=== PATIENT | male | born 1960 | race Caucasian/White ===

== ENCOUNTER 2018-04-24 03:18 | Inpatient (IN) | payer OTHER ==
[~2018-04-24] VITALS: Ht 175.3 cm; Wt 64.9 kg
--- NOTE | 2018-04-24 03:30 | NUR ---
PT AMBULATED TO ER WITH C/O CHEST PAIN WITH SOB X 10 DAYS BUT MUCH WORSE TODAY. PT STATES HE HAS HX OF AR. AA0X4. SAO2 100% RA.
[2018-04-24] MEDS ORDERED: ASPIRIN 325 MG TABLET PO ONE (03:45)
[2018-04-24] MEDS ORDERED: DILTIAZEM HCL 25 MG IV IV ONE ×3 (03:45→06:00)
[2018-04-24] MEDS ORDERED: ASPIRIN 325 MG TABLET ONE (03:51)
[2018-04-24] MEDS ORDERED: DILTIAZEM HCL 25 MG IV ONE ×2 (03:53→05:10)
--- NOTE | 2018-04-24 04:28 | NUR ---
PERIPHERAL IV LINE 20 GAUGE PLACED BY ZORA NEWELL IN RIGHT SIDE OF HEAD. CARDIZEM 5 MG GIVEN IV
[2018-04-24 04:29] LABS: BASOPHILS # (AUTO) 0.1 K/uL (0.0-8.0); BASOPHILS % (AUTO) 0.9 % (0.0-2.0); EOSINOPHILS # (AUTO) 0.2 K/uL (0.0-0.7); EOSINOPHILS % (AUTO) 2.6 % (0.0-7.0); HEMATOCRIT 42.1 % (36.7-47.1); HEMOGLOBIN 14.3 g/dL (12.5-16.3); LYMPHOCYTES # (AUTO) 1.8 K/uL (20.0-40.0); LYMPHOCYTES % (AUTO) 29.1 % (20.5-51.5); MEAN CORPUSCULAR HEMOGLOBIN 28.3 uug (23.8-33.4); MEAN CORPUSCULAR HGB CONC 34 g/dL (32.5-36.3); MEAN CORPUSCULAR VOLUME 83.6 fL (73.0-96.2); MONOCYTES # (AUTO) 0.9 K/uL (2.0-10.0); MONOCYTES % (AUTO) 15.2 % (0.0-11.0); NEUTROPHILS # (AUTO) 3.2 K/uL (1.8-8.9); NEUTROPHILS % (AUTO) 52.2 % (38.5-71.5); PLATELET COUNT (AUTO) 180 K/uL (152-348); RED BLOOD CELL COUNT(AUTO) 5.04 MIL/uL (4.06-5.63); WHITE BLOOD COUNT (AUTO) 6.2 K/uL (3.6-10.2)
[2018-04-24] MEDS ORDERED: VANCOMYCIN IV 200 ML ONE (04:40)
[2018-04-24] MEDS ORDERED: VANCOMYCIN IV 1,000 MG in IV DEXTROSE 5% 250 ML IV ONE (04:45)
[2018-04-24 04:46] LABS: CREATININE 0.9 mg/dL (0.6-1.3); POTASSIUM 3.8 mmol/L (3.5-5.1)
[2018-04-24 04:59] LABS: BILIRUBIN,DIRECT 0.1 mg/dL (0.0-0.2); BILIRUBIN,TOTAL 0.4 mg/dL (0.2-1.0); TOTAL PROTEIN, SERUM 6.4 g/dL (6.4-8.2)
--- NOTE | 2018-04-24 05:30 | NUR ---
2ND DOSE OF CARDIZEM 5 MG IV GIVEN
--- NOTE | 2018-04-24 05:43 | NUR ---
PAGED [facility] FOR PANEL CALL. AWAITING CALL BACK FROM CARRIE MARSHALL
--- NOTE | 2018-04-24 05:48 | NUR ---
DR. FELIX TALKING TO CARRIE MARSHALL NP ([facility])
--- NOTE | 2018-04-24 05:55 | NUR ---
Pt. admitted to TELE TD ([facility]) , under care of CARRIE MUKHERJEE PLASTIC PRESS OPERATOR (EPIC) Belongs List completed Report given to Anila LOTT
[2018-04-24] MEDS ORDERED: NITROGLYCERIN OINT 1 GM PACKET TP PRN (06:00)
[2018-04-24] MEDS ORDERED: MORPHINE SULFATE 2 MG/1 ML DISP.SYRIN IV PRN ×2 (06:00)
[2018-04-24] MEDS ORDERED: ACETAMINOPHEN 325 MG TABLET PO PRN (06:00)
[2018-04-24] MEDS ORDERED: Z GUARD REMEDY PASTE 57 GM TUBE TOP PRN (06:00)
[2018-04-24] MEDS ORDERED: ONDANSETRON 4 MG/2 ML VIAL IV PRN ×2 (06:00)
[2018-04-24] MEDS ORDERED: FUROSEMIDE 20 MG/2 ML VIAL IV ONE (06:00)
[2018-04-24] MEDS ORDERED: NITROGLYCERIN 0.4 MG/TAB BOTTLE SL PRN (06:00)
[2018-04-24] MEDS ORDERED: MAGNESIUM HYDROXIDE 30 ML LIQUID UDC PO PRN (06:00)
[2018-04-24 06:06] LABS: EOSINOPHILS % (MANUAL) 4 % (0-8); LYMPHOCYTES % (MANUAL) 23 % (20-40); MONOCYTES % (MANUAL) 11 % (2-10); NEUTROPHILS % (MANUAL) 62 % (42-75)
--- NOTE | 2018-04-24 06:24 | NUR ---
GAVE REPORT TO ANNIA LOTT
[2018-04-24 07:00] VITALS: BP 122/94
[2018-04-24] MEDS ORDERED: MORPHINE SULFATE 4 MG/1 ML DISP.SYRIN IV PRN (08:00)
--- NOTE | 2018-04-24 08:00 | NUR ---
PATIENT RESTING IN BED IN NO APPARENT DISTRESS. FREQUENT VISUAL CHECKS DONE. SIDE RAILS UP. SEEN BY
[2018-04-24] MEDS: PANTOPRAZOLE SODIUM 40 MG VIAL IV SCH (08:58)
[2018-04-24] MEDS ORDERED: ASPIRIN 325 MG TABLET PO SCH (09:00)
[2018-04-24] MEDS ORDERED: ENOXAPARIN SODIUM 40 MG/0.4 ML DISP.SYRIN SQ SCH (09:00)
--- NOTE | 2018-04-24 10:00 | NUR ---
BLADDER SCAN 951 CC VOIDED 400ML WITH PVR OF 500+
[2018-04-24] MEDS: MORPHINE SULFATE 4 MG/1 ML DISP.SYRIN IV PRN ×2 (10:10→20:55)
[2018-04-24] MEDS ORDERED: TAMSULOSIN HCL 0.4 MG CAP.SR.24H PO ONE (10:30)
--- NOTE | 2018-04-24 11:42 | NUR ---
MIDLINE INSERTED TO RIGHT BRACHIAL WITH NO COMPLICATIONS AT 1130AM
[2018-04-24 12:17] VITALS: BP 116/73
--- NOTE | 2018-04-24 12:48 | NUR ---
WOUND CARE CONSULT: LIMITED ASSESSMENT TODAY DUE TO PT REFUSAL TO REMOVE HIS JEANS. PT NOTED TO HAVE DEBRIS ON TOES WITH SOME CALLUSES AND RED SCARRED AREA BETWEEN RT 1ST AND 2ND TOE. NO DRAINAGE NOTED, NO TENDERNESS NOTED. DEFER TO . WILL SEE PRN. PT AMBULATORY AND CONTINENT PER NURSING STAFF. CURRENT AMBER SCORE IS 21. Addendum: 04/24/18 at 1249 by KIMMIE FERNANDO RN Amended: Links added.
--- NOTE | 2018-04-24 15:00 | NUR ---
BLADDER SCAN 657ML VOIDED 400ML WITH PVR 237ML
[2018-04-24 15:34] VITALS: BP 131/90
[2018-04-24 17:53] LABS: *AMPHETAMINE, URINE POSITIVE (NEGATIVE); *BARBITURATE, URINE NEGATIVE (NEGATIVE); *CANNABINOID, URINE POSITIVE (NEGATIVE); *COCCAINE, URINE NEGATIVE (NEGATIVE); *OPIATE, URINE NEGATIVE (NEGATIVE); *PHENCYCLIDINE SCREEN,URINE NEGATIVE (NEGATIVE)
[2018-04-24] MEDS ORDERED: RIVAROXABAN 10 MG TABLET PO SCH (18:00)
[2018-04-24] MEDS: PROPRANOLOL HCL 10 MG TABLET PO SCH (18:02)
[2018-04-24 18:13] LABS: *BILIRUBIN,URIN NEGATIVE (NEGATIVE); *BLOOD, URINE NEGATIVE (NEGATIVE); *CLARITY,URINE CLEAR (CLEAR); *COLOR,URINE YELLOW (YELLOW); *KETONES,URINE NEGATIVE (NEGATIVE); *PROTEIN,URINE NEGATIVE (NEGATIVE); *UROBILINOGEN,URINE 0.2 E.U./dl (NORMAL); LEUKOCYTE ESTERASE ,URINE NEGATIVE (NEGATIVE); NITRITE, URINE NEGATIVE (NEGATIVE); UGLUCOSE NEGATIVE (NEGATIVE)
[2018-04-24 18:16] LABS: MUCUS,URINE FEW /LPF (0-FEW)
--- NOTE | 2018-04-24 18:27 | NUR ---
DR JONES NOTIFIED OF URINARY RETENTION. PATIENT SEEN AND EVALUATED BY DR. AYON. DR AYON SUGGESTED UROLOGY CONSULT
--- NOTE | 2018-04-24 19:30 | NUR ---
RECEIVED PATIENT AWAKE ON BED. ON AFIB RHYTHM WITH HR OF 106. NO SIGN OF RESPIRATORY DISTRESS. MIDLINE, PATENT AND INTACT. SAFETY MEASURES INITIATED. KEPT CALL LIGHT WITHIN REACH.
[2018-04-24 19:33] VITALS: BP 115/75
--- NOTE | 2018-04-24 20:15 | NUR ---
Received patient awake & alert no SOB deneis chest pain. Anxiousness noted patient stated he needs to smoke outside. Instructed & explained he's not allowed to smoke due to current medical condition A-fib with RVR. Tele shows Atrial Afib HR 98 bpm. Patient upset & agitated, stated he will leave AMA. Nursing expedition supervisor & Dr. Cantrell notified.
--- NOTE | 2018-04-24 20:41 | NUR ---
Patient changed his mind to leave AMA. ordered Nicotine patch 21 mg daily.
[2018-04-24] MEDS: NICOTINE 21 MG/24HR PATCH TD SCH (20:54)
[2018-04-24] MEDS: TAMSULOSIN HCL 0.4 MG CAP.SR.24H PO SCH (20:57)
[2018-04-24] MEDS: DOCUSATE SODIUM 100 MG CAPSULE PO SCH (20:57)
[2018-04-24] MEDS ORDERED: TAMSULOSIN HCL 0.4 MG CAP.SR.24H PO SCH (21:00)
--- NOTE | 2018-04-24 21:12 | NUR ---
Nicotine 21 mg patch applied. Patient c/o right foot pain 6/10 pain level. Morphine 1 mg adm IVP. Tele A-fib HR 100 bpm.
[2018-04-24 23:30] VITALS: BP 106/73
[2018-04-24] MEDS ORDERED: IPRATROPIUM BROMIDE 0.5 MG/2.5 ML NEBU NEB PRN (23:30)
[2018-04-24] MEDS ORDERED: LORAZEPAM 2 MG/1 ML VIAL IV PRN (23:30)
[2018-04-24] MEDS ORDERED: ALBUTEROL SULFATE 2.5 MG/3 ML NEBU NEB PRN (23:30)
--- NOTE | 2018-04-24 23:32 | NUR ---
Remains awake slightly SOB & anxious at this time. Paged Dr. Cantrell. Orders received.
--- NOTE | 2018-04-25 00:14 | NUR ---
New ordered meds still unverified.
--- NOTE | 2018-04-25 01:30 | NUR ---
Ativan 0.5 mg IVP adm., HHN treatment initiated by RT.
--- NOTE | 2018-04-25 02:15 | NUR ---
Good effect noted post breathing treatment, patient asleep at this time. No sign of distress noted. Tele remains A-fib controlled.
[2018-04-25 03:49] VITALS: BP 108/77
[2018-04-25 06:21] LABS: BASOPHILS # (AUTO) 0.1 K/uL (0.0-8.0); BASOPHILS % (AUTO) 1.1 % (0.0-2.0); EOSINOPHILS # (AUTO) 0.2 K/uL (0.0-0.7); EOSINOPHILS % (AUTO) 4.1 % (0.0-7.0); HEMATOCRIT 44.5 % (36.7-47.1); HEMOGLOBIN 15.2 g/dL (12.5-16.3); LYMPHOCYTES % (AUTO) 21.1 % (20.5-51.5); MEAN CORPUSCULAR HEMOGLOBIN 28.4 uug (23.8-33.4); MEAN CORPUSCULAR HGB CONC 34 g/dL (32.5-36.3); MEAN CORPUSCULAR VOLUME 83.3 fL (73.0-96.2); MONOCYTES # (AUTO) 0.6 K/uL (2.0-10.0); MONOCYTES % (AUTO) 12.7 % (0.0-11.0); PLATELET COUNT (AUTO) 188 K/uL (152-348); RED BLOOD CELL COUNT(AUTO) 5.35 MIL/uL (4.06-5.63)
[2018-04-25 06:39] LABS: CARBON DIOXIDE 26 mmol/L (21-32); CHLORIDE 106 mmol/L (98-107); CHOLESTEROL 52 mg/dL (<200); CREATININE 0.8 mg/dL (0.6-1.3); GLUCOSE 96 mg/dL (74-106); HDL CHOLESTEROL 19 mg/dL (40-60); MAGNESIUM 1.7 mg/dL (1.8-2.4); PHOSPHOROUS 3.9 mg/dL (2.5-4.9); TRIGLYCERIDES 56 MG/DL (30-150); UREA NITROGEN, BLOOD 16 mg/dL (7-18)
[2018-04-25 06:49] LABS: THYROID STIMULATING HORMONE < 0.007 mIU/mL (0.358-3.740)
--- NOTE | 2018-04-25 06:57 | NUR ---
Patient asleep and resting comfortably. on tele afib rhythm with HR of 96. no SOB, denies chest pain. vital signs WNL
--- NOTE | 2018-04-25 08:00 | NUR ---
PATIENT APPEARS TO BE IN NO DISTRESS TIME. PATIENT REMAINS IN CONTROLLED A-FIB RHYTHM.
[2018-04-25] MEDS: FUROSEMIDE 40 MG/4 ML VIAL IV SCH (08:14)
[2018-04-25] MEDS: MULTIVITAMINS,THERAPEUTIC TABLET PO SCH (08:16)
[2018-04-25] MEDS: PANTOPRAZOLE SODIUM 40 MG VIAL IV SCH (08:16)
[2018-04-25] MEDS: NICOTINE 21 MG/24HR PATCH TD SCH (08:17)
[2018-04-25] MEDS: PROPRANOLOL HCL 10 MG TABLET PO SCH ×2 (08:17→13:53)
[2018-04-25 11:33] VITALS: BP 120/75
--- NOTE | 2018-04-25 12:22 | NUR ---
PATIENT COMPLAINED OF "I DONT FEEL GOOD". NO SIGNS OF SOB. WARM AND DRY SKIN. NO ACUTE DISTRESS. VS 109/65 HR 105 O2 SAT 98% ON O2 AT 2LPM. DENIES PAIN. WILL CLOSELY MONITOR.
[2018-04-25] MEDS ORDERED: MAGNESIUM OXIDE 400 MG TABLET PO ONE (12:45)
[2018-04-25 15:37] VITALS: BP 103/68
--- NOTE | 2018-04-25 16:50 | NUR ---
MALE VISITER CAME WITH A BAG OF FOOD.
[2018-04-25] MEDS ORDERED: PROPRANOLOL HCL 10 MG TABLET PO SCH (17:00)
[2018-04-25] MEDS: RIVAROXABAN 10 MG TABLET PO SCH (17:25)
--- NOTE | 2018-04-25 18:04 | NUR ---
SEEN BY DR AYON ADJUSTED MEDICATIONS. PT IN STABLE CONDITION. REMAINS AFIB ON MONITOR
[2018-04-25] MEDS: HYDROCODONE/APAP 5-325MG TABLET PO PRN (18:24)
[2018-04-25 19:33] VITALS: BP 134/65
[2018-04-25] MEDS: TAMSULOSIN HCL 0.4 MG CAP.SR.24H PO SCH (21:29)
[2018-04-25] MEDS: DOCUSATE SODIUM 100 MG CAPSULE PO SCH (21:29)
[2018-04-25] MEDS: PROPRANOLOL HCL 20 MG TABLET PO SCH (21:29)
[2018-04-25 23:45] VITALS: BP 127/55
[2018-04-26] MEDS: MORPHINE SULFATE 4 MG/1 ML DISP.SYRIN IV PRN (02:01)
[2018-04-26 03:35] VITALS: BP 102/66
[2018-04-26] MEDS: PROPRANOLOL HCL 20 MG TABLET PO SCH ×2 (05:50→15:10)
[2018-04-26] MEDS ORDERED: PANTOPRAZOLE SODIUM 40 MG TABLET.DR PO SCH (07:00)
--- NOTE | 2018-04-26 07:25 | NUR ---
PATIENT REMAINED ASLEEP AND RESTING COMFORTABLY. ON TELE AFIB WITH HR OF 102. NO SOB, DENIES CHEST PAIN.
--- NOTE | 2018-04-26 08:10 | NUR ---
AWAKE ALERT AN VERBA;;Y RESPONSIVE NO SS OF PAIN OE DISTRESS. REMAINS AFIB ON MONITOR
[2018-04-26 08:29] VITALS: BP 109/71
[2018-04-26] MEDS: NICOTINE 21 MG/24HR PATCH TD SCH (08:31)
[2018-04-26] MEDS: MULTIVITAMINS,THERAPEUTIC TABLET PO SCH (08:31)
[2018-04-26] MEDS: FUROSEMIDE 40 MG/4 ML VIAL IV SCH (08:31)
--- NOTE | 2018-04-26 11:00 | NUR ---
EEN BY PODIATRISR RECOMMEND MRI RIGHT TOR
[2018-04-26 11:42] VITALS: BP 109/85
[2018-04-26 11:48] LABS: CREATININE 0.9 mg/dL (0.6-1.3); MAGNESIUM 1.6 mg/dL (1.8-2.4); POTASSIUM 3.9 mmol/L (3.5-5.1)
--- NOTE | 2018-04-26 12:00 | NUR ---
CONTINUE WITH PAIN MAGT
--- NOTE | 2018-04-26 13:30 | NUR ---
TO CT SCAN FOR RT FOOT SCAN R/O OSTEOMYELITIS
[2018-04-26] MEDS: HYDROCODONE/APAP 5-325MG TABLET PO PRN (15:09)
--- NOTE | 2018-04-26 15:14 | NUR ---
ADMITTED FROM HOME A 58 YO FEMALE WITH ADM DX OF ACCELERATED HYPERTENSION AWAKE ALERT AND ORIENTED X3.ROUTINE ADM ASSESSMENT INITIATED HOSPITALIST DIANA AWARE OF ADM OSMIN ORDERS Addendum: 04/26/18 at 1520 by MIROSLAVA FARLEY RN ERROR
[2018-04-26] MEDS: MAGNESIUM SULFATE/D5W 100 ML IV SCH ×2 (16:11→17:40)
[2018-04-26] MEDS: RIVAROXABAN 10 MG TABLET PO SCH (17:43)
--- NOTE | 2018-04-26 18:16 | NUR ---
CONTINUE WITH BLOOD PRESSURE AND SUGAR MONITORING. PATIENT REMAINS ASSYMPTOMATIC, COHERENT AND APPROPRIATE. WILL CALL FAMILY TO BRING HOME MEDS
[2018-04-26 19:00] VITALS: BP 123/69
--- NOTE | 2018-04-26 19:00 | NUR ---
Received patient awake. Not in distress. Denies any pain/discomforts at this time. Dressing on CARLOS Mid Line dry and intact. Safety measures and fall precaution maintained. Continue care as planned.
--- NOTE | 2018-04-26 20:06 | NUR ---
Patient all of a sudden starts packing and when asked he said he's going AMA and will sign the paper. Charge Nurse and MD made aware.
--- NOTE | 2018-04-26 20:20 | NUR ---
Mid line dc'd. No bleeding noted, secured with tape.
[2018-05-04] MEDS ORDERED: METH5TAB34 PO (12:06)
[2018-05-04] MEDS ORDERED: ASPI81TA31 PO (12:06)
[2018-05-04] MEDS ORDERED: DILT60TA35 PO (12:06)
[2018-05-04] MEDS ORDERED: PROP10TA68 PO (12:06)
[2018-05-04] MEDS ORDERED: RIVA10TA PO (12:06)
[2018-05-04] MEDS ORDERED: FURO40TA5 PO (12:06)
== END 2018-04-26 20:06 | disposition left against medical advice (07) | DRG 201 ==
LOC: ER 03:25 → TELE-TD 05:40 → TELE 04-26 19:38
PROVIDERS: ADMIT Registered Nurse; ATTEND Internal Medicine
PROC: 05H533Z Insertion of Infusion Device into Right Subclavian Vein, Percutaneous Approach (ICD-10-PCS; principal; 2018-04-24)
PROC: B546ZZA Ultrasonography of Right Subclavian Vein, Guidance (ICD-10-PCS; principal; 2018-04-24)
DX: I48.91 Unspecified atrial fibrillation (principal); I50.23 Acute on chronic systolic (congestive) heart failure; I42.9 Cardiomyopathy, unspecified; L03.115 Cellulitis of right lower limb; E83.42 Hypomagnesemia; E05.90 Thyrotoxicosis, unspecified without thyrotoxic crisis or storm; N40.0 Benign prostatic hyperplasia without lower urinary tract symptoms; F17.210 Nicotine dependence, cigarettes, uncomplicated; I11.0 Hypertensive heart disease with heart failure; F15.90 Other stimulant use, unspecified, uncomplicated; Z71.6 Tobacco abuse counseling; Z59.0 Homelessness; Z71.51 Drug abuse counseling and surveillance of drug abuser; B19.20 Unspecified viral hepatitis C without hepatic coma
CPT/HCPCS: 36415; 36569; 70030-TC; 71045; 73630; 73700; 80307; 83735; 84100; 84443; 85025; 85730; 93005; 93307; 94664; 97116; 97530; A4663; C9113; J1650; J1940; J2060; J2270; J2405; J3370; J3475; J3490; J3590; J7050

== ENCOUNTER 2018-05-02 00:23 | Inpatient (IN) | payer OTHER ==
[~2018-05-02] VITALS: Ht 172.7 cm; Wt 64.7 kg
[2018-05-02] MEDS ORDERED: DILTIAZEM HCL IV 20 MG in IV DEXTROSE 5% 100 ML IV ONE (00:30)
[2018-05-02] MEDS ORDERED: LORAZEPAM 2 MG/1 ML VIAL IV ONE (00:30)
[2018-05-02] MEDS ORDERED: DILTIAZEM HCL 25 MG IV ONE (00:37)
[2018-05-02] MEDS ORDERED: LORAZEPAM 2 MG/1 ML VIAL ONE (00:39)
[2018-05-02] MEDS ORDERED: DILTIAZEM HCL 25 MG IV IV ONE (01:00)
[2018-05-02 01:07] LABS: BASOPHILS % (AUTO) 0.6 % (0.0-2.0); EOSINOPHILS # (AUTO) 0.2 K/uL (0.0-0.7); EOSINOPHILS % (AUTO) 2.2 % (0.0-7.0); HEMATOCRIT 41.9 % (36.7-47.1); HEMOGLOBIN 14.1 g/dL (12.5-16.3); LYMPHOCYTES # (AUTO) 1.7 K/uL (20.0-40.0); LYMPHOCYTES % (AUTO) 22.7 % (20.5-51.5); MEAN CORPUSCULAR HEMOGLOBIN 28.2 uug (23.8-33.4); MEAN CORPUSCULAR HGB CONC 34 g/dL (32.5-36.3); MEAN CORPUSCULAR VOLUME 83.7 fL (73.0-96.2); MONOCYTES # (AUTO) 0.8 K/uL (2.0-10.0); NEUTROPHILS # (AUTO) 4.9 K/uL (1.8-8.9); NEUTROPHILS % (AUTO) 64.5 % (38.5-71.5); PLATELET COUNT (AUTO) 188 K/uL (152-348); WHITE BLOOD COUNT (AUTO) 7.7 K/uL (3.6-10.2)
[2018-05-02 01:14] LABS: CREATININE 0.9 mg/dL (0.6-1.3); POTASSIUM 3.7 mmol/L (3.5-5.1)
[2018-05-02] MEDS ORDERED: DILTIAZEM HCL 60 MG TABLET PO ONE (01:30)
[2018-05-02] MEDS ORDERED: DILTIAZEM HCL 60 MG TABLET ONE (01:35)
[2018-05-02] MEDS ORDERED: ENOXAPARIN SODIUM 60 MG/0.6 ML DISP.SYRIN SQ ONE (01:58)
[2018-05-02] MEDS ORDERED: ENOXAPARIN SODIUM 60 MG/0.6 ML DISP.SYRIN SQ SCH (02:00)
[2018-05-02] MEDS ORDERED: DIGOXIN 500 MCG/2 ML AMP IV ONE (02:15)
[2018-05-02] MEDS ORDERED: METOPROLOL TARTRATE 5 MG/5 ML VIAL IVP PRN (02:15)
[2018-05-02] MEDS ORDERED: Z GUARD REMEDY PASTE 57 GM TUBE TOP PRN (02:15)
[2018-05-02] MEDS ORDERED: ACETAMINOPHEN 325 MG TABLET PO PRN (02:15)
[2018-05-02] MEDS ORDERED: ONDANSETRON 4 MG/2 ML VIAL IV PRN (02:15)
[2018-05-02] MEDS ORDERED: MORPHINE SULFATE 2 MG/1 ML DISP.SYRIN IV PRN (02:15)
[2018-05-02] MEDS ORDERED: LORAZEPAM 2 MG/1 ML VIAL IV PRN (02:15)
[2018-05-02] MEDS: DILTIAZEM HCL 60 MG TABLET PO SCH ×4 (02:15→22:00)
[2018-05-02] MEDS ORDERED: MAGNESIUM HYDROXIDE 30 ML LIQUID UDC PO PRN (02:15)
[2018-05-02 03:00] VITALS: BP 93/62
[2018-05-02] MEDS: HYDROCODONE/APAP 5-325MG TABLET PO PRN ×2 (04:06→23:17)
[2018-05-02] MEDS ORDERED: METOPROLOL TARTRATE 25 MG TABLET PO PRN (05:00)
[2018-05-02] MEDS ORDERED: ONDANSETRON ODT 4 MG TAB.RAPDIS SL PRN (05:00)
[2018-05-02] MEDS ORDERED: MORPHINE SULFATE 2 MG/1 ML DISP.SYRIN ONE (05:35)
[2018-05-02] MEDS ORDERED: MORPHINE SULFATE 2 MG/1 ML DISP.SYRIN IM PRN (06:15)
[2018-05-02] MEDS ORDERED: MORPHINE SULFATE 4 MG/1 ML DISP.SYRIN IM PRN (07:04)
[2018-05-02] MEDS ORDERED: ASPIRIN 81 MG TAB.CHEW PO SCH (09:00)
[2018-05-02 11:47] VITALS: BP 106/80
[2018-05-02] MEDS: LORAZEPAM 2 MG/1 ML VIAL IM PRN ×2 (12:51→21:05)
[2018-05-02 16:01] VITALS: BP 112/61
[2018-05-02] MEDS ORDERED: FUROSEMIDE 40 MG/4 ML VIAL IV SCH (16:30)
[2018-05-02] MEDS ORDERED: PROPRANOLOL HCL 10 MG TABLET PO SCH (17:00)
[2018-05-02] MEDS: METOPROLOL TARTRATE 25 MG TABLET PO SCH ×2 (17:38→20:58)
[2018-05-02] MEDS: FUROSEMIDE 40 MG TABLET PO SCH (17:39)
[2018-05-02] MEDS: RIVAROXABAN 10 MG TABLET PO SCH (18:58)
[2018-05-02 19:00] VITALS: BP 109/68
[2018-05-02] MEDS: ZOLPIDEM 5 MG TABLET PO PRN (23:42)
[2018-05-03] VITALS: BP 107/54
[2018-05-03 04:00] VITALS: BP 106/70
[2018-05-03] MEDS: DILTIAZEM HCL 60 MG TABLET PO SCH ×3 (06:00→22:00)
[2018-05-03 06:18] LABS: BASOPHILS # (AUTO) 0.1 K/uL (0.0-8.0); BASOPHILS % (AUTO) 0.7 % (0.0-2.0); EOSINOPHILS # (AUTO) 0.1 K/uL (0.0-0.7); EOSINOPHILS % (AUTO) 0.7 % (0.0-7.0); HEMATOCRIT 43.6 % (36.7-47.1); HEMOGLOBIN 14.5 g/dL (12.5-16.3); LYMPHOCYTES # (AUTO) 1.9 K/uL (20.0-40.0); LYMPHOCYTES % (AUTO) 19.4 % (20.5-51.5); MEAN CORPUSCULAR HEMOGLOBIN 27.9 uug (23.8-33.4); MEAN CORPUSCULAR HGB CONC 33 g/dL (32.5-36.3); MONOCYTES % (AUTO) 9.9 % (0.0-11.0); NEUTROPHILS # (AUTO) 6.8 K/uL (1.8-8.9); NEUTROPHILS % (AUTO) 69.3 % (38.5-71.5); PLATELET COUNT (AUTO) 192 K/uL (152-348); RED BLOOD CELL COUNT(AUTO) 5.19 MIL/uL (4.06-5.63); WHITE BLOOD COUNT (AUTO) 9.8 K/uL (3.6-10.2)
[2018-05-03 06:32] LABS: CARBON DIOXIDE 26 mmol/L (21-32); CHLORIDE 104 mmol/L (98-107); GLUCOSE 93 mg/dL (74-106); HDL CHOLESTEROL 18 mg/dL (40-60); MAGNESIUM 1.7 mg/dL (1.8-2.4); PHOSPHOROUS 3.9 mg/dL (2.5-4.9); POTASSIUM 4.6 mmol/L (3.5-5.1); TRIGLYCERIDES 47 MG/DL (30-150); UREA NITROGEN, BLOOD 17 mg/dL (7-18)
[2018-05-03 06:39] LABS: THYROID STIMULATING HORMONE < 0.007 mIU/mL (0.358-3.740)
[2018-05-03 06:41] LABS: CHOLESTEROL < 50 mg/dL (<200)
[2018-05-03 07:00] VITALS: BP 100/69
[2018-05-03] MEDS: ASPIRIN 81 MG TAB.CHEW PO SCH (08:36)
[2018-05-03] MEDS: FUROSEMIDE 40 MG TABLET PO SCH ×2 (08:36→17:31)
[2018-05-03] MEDS: METOPROLOL TARTRATE 25 MG TABLET PO SCH (08:38)
[2018-05-03] MEDS ORDERED: LORAZEPAM 2 MG/1 ML VIAL ONE (10:30)
[2018-05-03] MEDS: METHIMAZOLE 5 MG TABLET PO SCH (11:06)
[2018-05-03] MEDS: PROPRANOLOL HCL 10 MG TABLET PO SCH ×3 (11:06→22:00)
[2018-05-03 12:00] VITALS: BP 98/48
[2018-05-03] MEDS: HYDROCODONE/APAP 5-325MG TABLET PO PRN (15:19)
[2018-05-03 16:14] VITALS: BP 104/80
[2018-05-03] MEDS: RIVAROXABAN 10 MG TABLET PO SCH (17:32)
[2018-05-03] MEDS ORDERED: MAGNESIUM SULFATE/D5W 100 ML IV SCH (18:00)
[2018-05-03] MEDS ORDERED: MAGNESIUM OXIDE 400 MG TABLET PO ONE ×4 (19:00→23:00)
[2018-05-03] MEDS: LORAZEPAM 2 MG/1 ML VIAL IM PRN (21:46)
[2018-05-04] VITALS: BP 106/75
[2018-05-04] MEDS: ZOLPIDEM 5 MG TABLET PO PRN (00:30)
[2018-05-04 04:00] VITALS: BP 98/72
[2018-05-04] MEDS: HYDROCODONE/APAP 5-325MG TABLET PO PRN (04:36)
[2018-05-04] MEDS: DILTIAZEM HCL 60 MG TABLET PO SCH (06:00)
[2018-05-04] MEDS: PROPRANOLOL HCL 10 MG TABLET PO SCH (06:00)
[2018-05-04 06:54] LABS: CREATININE 0.9 mg/dL (0.6-1.3); MAGNESIUM 1.9 mg/dL (1.8-2.4); POTASSIUM 3.8 mmol/L (3.5-5.1)
[2018-05-04] MEDS: FUROSEMIDE 40 MG TABLET PO SCH (08:32)
[2018-05-04] MEDS: ASPIRIN 81 MG TAB.CHEW PO SCH (08:32)
[2018-05-04] MEDS: METHIMAZOLE 5 MG TABLET PO SCH (08:32)
[2018-05-04] MEDS ORDERED: METH5TAB34 PO (12:06)
[2018-05-04] MEDS ORDERED: ASPI81TA31 PO (12:06)
[2018-05-04] MEDS ORDERED: PROP10TA68 PO (12:06)
[2018-05-04] MEDS ORDERED: RIVA10TA PO (12:06)
[2018-05-04] MEDS ORDERED: FURO40TA5 PO (12:06)
[2018-05-04] MEDS ORDERED: DILT60TA35 PO (12:06)
== END 2018-05-04 12:30 | disposition home or self-care (01) | DRG 194 ==
LOC: ER 00:25 → TELE 01:35
PROVIDERS: ADMIT Internal Medicine; ATTEND Nurse Practitioner Acute Care
DX: I11.0 Hypertensive heart disease with heart failure (principal); I42.9 Cardiomyopathy, unspecified; I50.23 Acute on chronic systolic (congestive) heart failure; I48.2 Chronic atrial fibrillation; I25.2 Old myocardial infarction; E05.90 Thyrotoxicosis, unspecified without thyrotoxic crisis or storm; Z91.19 Patient's noncompliance with other medical treatment and regimen; F12.90 Cannabis use, unspecified, uncomplicated; F19.10 Other psychoactive substance abuse, uncomplicated; F15.90 Other stimulant use, unspecified, uncomplicated
CPT/HCPCS: 36415; 70030-TC; 71045; 82746; 83735; 84100; 84443; 85025; 85730; 86850; 86900; 86901; 93005; A4663; J1160; J1650; J2060; J2270; J3490; J7060

== ENCOUNTER 2018-05-07 04:13 | Emergency (ER) | payer OTHER ==
[~2018-05-07] VITALS: Ht 172.7 cm; Wt 63.5 kg
[~2018-05-07 04:13] MED LIST: ASPI81TA31 PO; DILT60TA35 PO; FURO40TA5 PO; METH5TAB34 PO; PROP10TA68 PO; RIVA10TA PO
--- NOTE | 2018-05-07 04:21 | NUR ---
PT PRESENTS TO ER W/ C/O ABSCESS TO BACK OF RT KNEE R/T IV DRUG USE. DR BRIAN BLAKELY MD AT BEDSIDE FOR MSE.
[2018-05-07] MEDS ORDERED: LIDOCAINE HCL 1% 20 ML VIAL TP ONE (04:45)
--- NOTE | 2018-05-07 04:48 | NUR ---
Patient discharged to home in stable conditon. Written and verbal after care instructions given. Patient verbalizes understanding of instructions. Pt ambulatory w/ steady gait. pt took all personal belongings. no distress noted.
[2018-05-07 04:52] VITALS: BP 122/87
== END 2018-05-07 04:53 | disposition home or self-care (01) ==
LOC: ER 04:24
DX: L02.415 Cutaneous abscess of right lower limb (principal); I10 Essential (primary) hypertension; F15.10 Other stimulant abuse, uncomplicated; F17.200 Nicotine dependence, unspecified, uncomplicated; Z88.8 Allergy status to other drugs, medicaments and biological substances; Z59.0 Homelessness; Z79.82 Long term (current) use of aspirin; Z79.899 Other long term (current) drug therapy
CPT/HCPCS: A4663; J3490

== ENCOUNTER 2018-05-25 01:49 | Emergency (ER) | payer OTHER ==
[~2018-05-25] VITALS: Ht 172.7 cm; Wt 63.5 kg
[2018-05-25 02:26] LABS: *BILIRUBIN,URIN NEGATIVE (NEGATIVE); *BLOOD, URINE NEGATIVE (NEGATIVE); *CLARITY,URINE CLEAR (CLEAR); *COLOR,URINE YELLOW (YELLOW); *KETONES,URINE NEGATIVE (NEGATIVE); *PROTEIN,URINE NEGATIVE (NEGATIVE); LEUKOCYTE ESTERASE ,URINE NEGATIVE (NEGATIVE); NITRITE, URINE NEGATIVE (NEGATIVE); UGLUCOSE NEGATIVE (NEGATIVE)
[2018-05-25 02:39] LABS: BACTERIA,URINE NONE SEEN /HPF (NONE SEEN); RBC,URINE 0-3 /HPF (0-3); SQUAMOUS EPITHELIAL CELL,UR NONE SEEN /HPF (NONE SEEN); WBC,URINE NONE SEEN /HPF (0-3)
[2018-05-25 04:26] VITALS: BP 128/88
--- NOTE | 2018-05-25 04:26 | NUR ---
Patient given written and verbal discharge instructions. Patient verbalizes understanding of instructions. Patient is ambulatory with steady gait. Refuses offer of penitentiary placement. Patient given list of available shelters in surrounding area.
== END 2018-05-25 04:27 | disposition home or self-care (01) ==
LOC: ER 01:52
DX: Z00.00 Encounter for general adult medical examination without abnormal findings (principal); I10 Essential (primary) hypertension; F15.10 Other stimulant abuse, uncomplicated; F17.200 Nicotine dependence, unspecified, uncomplicated; Z88.5 Allergy status to narcotic agent; Z79.82 Long term (current) use of aspirin; Z79.899 Other long term (current) drug therapy; Z59.0 Homelessness
CPT/HCPCS: 87086; A4663

== ENCOUNTER 2018-06-19 19:12 | Inpatient (IN) | payer OTHER ==
[~2018-06-19] VITALS: Ht 172.7 cm; Wt 60.9 kg
--- NOTE | 2018-06-19 20:00 | NUR ---
Patient walked into ER c/o CP radiating to left arm x2 days and abdominal pain x1 day
[2018-06-19] MEDS ORDERED: ONDANSETRON 4 MG/2 ML VIAL IV ONE (20:30)
[2018-06-19] MEDS ORDERED: MORPHINE SULFATE 4 MG/1 ML DISP.SYRIN IV ONE (20:30)
[2018-06-19 20:53] LABS: BASOPHILS % (AUTO) 0.5 % (0.0-2.0); EOSINOPHILS % (AUTO) 0.5 % (0.0-7.0); HEMATOCRIT 41.9 % (36.7-47.1); HEMOGLOBIN 13.9 g/dL (12.5-16.3); LYMPHOCYTES # (AUTO) 1.3 K/uL (20.0-40.0); MEAN CORPUSCULAR HEMOGLOBIN 27.9 uug (23.8-33.4); MEAN CORPUSCULAR HGB CONC 33 g/dL (32.5-36.3); MEAN CORPUSCULAR VOLUME 84.2 fL (73.0-96.2); MONOCYTES # (AUTO) 0.9 K/uL (2.0-10.0); NEUTROPHILS # (AUTO) 5.2 K/uL (1.8-8.9); PLATELET COUNT (AUTO) 191 K/uL (152-348); RED BLOOD CELL COUNT(AUTO) 4.98 MIL/uL (4.06-5.63); WHITE BLOOD COUNT (AUTO) 7.5 K/uL (3.6-10.2)
[2018-06-19 21:02] LABS: CREATININE 0.9 mg/dL (0.6-1.3); POTASSIUM 4.4 mmol/L (3.5-5.1)
[2018-06-19 21:34] LABS: BILIRUBIN,DIRECT 0.5 mg/dL (0.0-0.2); BILIRUBIN,TOTAL 1.4 mg/dL (0.2-1.0); TOTAL PROTEIN, SERUM 6.3 g/dL (6.4-8.2)
[2018-06-19] MEDS ORDERED: ONDANSETRON 4 MG/2 ML VIAL ONE (21:40)
[2018-06-19] MEDS ORDERED: MORPHINE SULFATE 4 MG/1 ML DISP.SYRIN ONE (21:40)
[2018-06-19] MEDS ORDERED: ASPIRIN EC 325 MG TABLET.DR PO SCH (23:00)
[2018-06-19] MEDS ORDERED: HYDROCODONE/APAP 10-325 MG TABLET PO PRN (23:30)
[2018-06-19] MEDS ORDERED: ACETAMINOPHEN 325 MG TABLET PO PRN (23:30)
[2018-06-19] MEDS ORDERED: ONDANSETRON 4 MG/2 ML VIAL IV PRN (23:30)
[2018-06-19] MEDS ORDERED: MAGNESIUM HYDROXIDE 30 ML LIQUID UDC PO PRN (23:30)
[2018-06-19] MEDS ORDERED: MORPHINE SULFATE 2 MG/1 ML DISP.SYRIN IV PRN (23:30)
[2018-06-19] MEDS ORDERED: NITROGLYCERIN 0.4 MG/TAB BOTTLE SL ONE (23:45)
--- NOTE | 2018-06-20 00:10 | NUR ---
transfer to 2nd floor tele
--- NOTE | 2018-06-20 00:15 | NUR ---
IN FROM ER VIA [facility], 58 YEAR OLD MALE ADMITTED TO TELEMETRY WITH DX OF CHEST PAIN. AAOX4, NO COMPLAINTS OF SOB OR CHEST PAIN AT THIS TIME. TELE MONITOR APPLIED SHOWS SINUS RHYTHM WITH HR OF 89. IV SITE ON RAC, PATENT AND INTACT. ROUTINE ADMISSION DONE. PLAN OF CARE INITIATED. SAFETY MEASURES INITIATED. CALL SOLORZANO WITHIN REACH.
[2018-06-20 00:18] VITALS: BP 145/102
[2018-06-20] MEDS ORDERED: ENOXAPARIN SODIUM 40 MG/0.4 ML DISP.SYRIN SQ ONE (00:30)
[2018-06-20 03:23] VITALS: BP 129/88
[2018-06-20 04:47] LABS: BASOPHILS % (AUTO) 0.6 % (0.0-2.0); EOSINOPHILS # (AUTO) 0.1 K/uL (0.0-0.7); EOSINOPHILS % (AUTO) 1.7 % (0.0-7.0); HEMATOCRIT 41.5 % (36.7-47.1); HEMOGLOBIN 13.9 g/dL (12.5-16.3); LYMPHOCYTES # (AUTO) 1.6 K/uL (20.0-40.0); LYMPHOCYTES % (AUTO) 27.3 % (20.5-51.5); MEAN CORPUSCULAR HEMOGLOBIN 27.7 uug (23.8-33.4); MEAN CORPUSCULAR HGB CONC 33 g/dL (32.5-36.3); MEAN CORPUSCULAR VOLUME 83.1 fL (73.0-96.2); MONOCYTES # (AUTO) 0.6 K/uL (2.0-10.0); MONOCYTES % (AUTO) 10.5 % (0.0-11.0); NEUTROPHILS # (AUTO) 3.4 K/uL (1.8-8.9); NEUTROPHILS % (AUTO) 59.9 % (38.5-71.5); PLATELET COUNT (AUTO) 166 K/uL (152-348); WHITE BLOOD COUNT (AUTO) 5.7 K/uL (3.6-10.2)
[2018-06-20 05:05] LABS: CARBON DIOXIDE 23 mmol/L (21-32); CHLORIDE 106 mmol/L (98-107); CREATININE 0.7 mg/dL (0.6-1.3); GLUCOSE 104 mg/dL (74-106); MAGNESIUM 1.6 mg/dL (1.8-2.4); PHOSPHOROUS 3.6 mg/dL (2.5-4.9); POTASSIUM 3.6 mmol/L (3.5-5.1); UREA NITROGEN, BLOOD 11 mg/dL (7-18)
[2018-06-20 05:24] LABS: HDL CHOLESTEROL 16 mg/dL (40-60); TRIGLYCERIDES 32 MG/DL (30-150)
[2018-06-20 05:35] LABS: CHOLESTEROL < 50 mg/dL (<200)
--- NOTE | 2018-06-20 06:37 | NUR ---
PT AWAKE ON BED, AAOX4, NO SIGNS OF RESPIRATORY DISTRESS NOTED. ON TELE SINUS RHYTHM WITH HR OF 93, DENIES ANY CHEST PAIN AT THIS TIME. ON O2 2L VIA NC, TOLERATED WELL. SAFE ENVIRONMENT MAINTAINED AT ALL TIMES, CALL SOLORZANO WITHIN REACH. PT DESIRES CESSATION OF SUBSTANCE ABUSE INTAKE. OFFERED PT MECHANICAL FACILITIES TECHNICIAN AND MADE AWARE THAT THE NEXT SHIFT WILL BE INFORMED. WILL ENDORSE ACCORDINGLY.
[2018-06-20] MEDS ORDERED: HYDROCODONE/APAP 10-325 MG TABLET PO PRN (07:30)
[2018-06-20] MEDS ORDERED: ENOXAPARIN SODIUM 40 MG/0.4 ML DISP.SYRIN SQ SCH ×2 (07:30→21:00)
[2018-06-20] MEDS ORDERED: FUROSEMIDE 40 MG TABLET PO SCH ×2 (09:00→17:00)
[2018-06-20] MEDS ORDERED: ASPIRIN 325 MG TABLET PO SCH (09:00)
[2018-06-20] MEDS ORDERED: DILTIAZEM HCL 30 MG TABLET PO SCH (09:00)
[2018-06-20] MEDS ORDERED: FUROSEMIDE 20 MG TABLET PO SCH (09:00)
[2018-06-20] MEDS ORDERED: TAMSULOSIN HCL 0.4 MG CAP.SR.24H PO ONE (09:15)
[2018-06-20] MEDS ORDERED: MAGNESIUM SULFATE/D5W 100 ML IV ONE (09:15)
[2018-06-20] MEDS: METHIMAZOLE 5 MG TABLET PO SCH (09:25)
[2018-06-20] MEDS ORDERED: MORPHINE SULFATE 4 MG/1 ML DISP.SYRIN IV PRN (09:30)
[2018-06-20 11:44] VITALS: BP 124/86
[2018-06-20] MEDS ORDERED: DILTIAZEM HCL 60 MG TABLET PO SCH (14:00)
[2018-06-20] MEDS ORDERED: PROPRANOLOL HCL 10 MG TABLET PO SCH (14:00)
[2018-06-20 16:02] VITALS: BP 103/67
[2018-06-20 16:38] LABS: *BILIRUBIN,URIN 1+ (NEGATIVE); *BLOOD, URINE NEGATIVE (NEGATIVE); *COLOR,URINE DARK YELLOW (YELLOW); *KETONES,URINE NEGATIVE (NEGATIVE); *PROTEIN,URINE 2+ (NEGATIVE); LEUKOCYTE ESTERASE ,URINE NEGATIVE (NEGATIVE); NITRITE, URINE NEGATIVE (NEGATIVE); UGLUCOSE NEGATIVE (NEGATIVE)
[2018-06-20 17:26] LABS: *CLARITY,URINE SLIGHTLY HAZY (CLEAR)
[2018-06-20 17:28] LABS: SQUAMOUS EPITHELIAL CELL,UR FEW /HPF (NONE SEEN)
[2018-06-20 17:29] LABS: MUCUS,URINE MANY /LPF (0-FEW)
--- NOTE | 2018-06-20 17:45 | NUR ---
PATIENT STATED RELIEF FROM URINATING, "I THINK THE FLOMAX IS WORKING". PT NO C/O OF FULLNESS OF BLADDER.
[2018-06-20] MEDS ORDERED: RIVAROXABAN 10 MG TABLET PO SCH (18:00)
--- NOTE | 2018-06-20 18:13 | NUR ---
PT ALERT, IN NO DISTRESS, NO C/O OF CHEST PAIN, SOB. PT IS ON TELE SINUS RHYTHM WITH PVC's. SAFETY MEASURES N PLACE.
[2018-06-20 19:00] VITALS: BP 99/70
--- NOTE | 2018-06-20 19:10 | NUR ---
RECEIVED PT AWAKE ON BED, AAOX4, NO SOB, NO COMPLAINT OF CHEST PAIN AT THIS TIME. IV SITE ON RAC, PATENT AND INTACT. BED PLACED ON LOW, WITH 2 SIDE RAILS UP. HOB RAISED, CALL SOLORZANO WITHIN REACH.
[2018-06-20] MEDS ORDERED: TAMSULOSIN HCL 0.4 MG CAP.SR.24H PO SCH (21:00)
[2018-06-21 04:00] VITALS: BP 110/76
--- NOTE | 2018-06-21 06:55 | NUR ---
PT AWAKE, AAOX3, NO COMPLAINT OF CHEST PAIN, NO SOB NOTED. IV SITE REMAIN PATENT AND INTACT. SAFE ENVIRONMENT MAINTAINED AT ALL TIMES, CALL SOLORZANO WITHIN REACH.
[2018-06-21] MEDS ORDERED: CARVEDILOL 6.25 MG TABLET PO SCH (08:00)
[2018-06-21] MEDS: METHIMAZOLE 5 MG TABLET PO SCH (08:16)
[2018-06-21] MEDS ORDERED: METHIMAZOLE 5 MG TABLET PO SCH (09:00)
[2018-06-21] MEDS ORDERED: FUROSEMIDE 40 MG TABLET PO SCH (09:00)
[2018-06-21] MEDS ORDERED: LOSARTAN POTASSIUM 25 MG TABLET PO SCH (09:00)
[2018-06-21] MEDS ORDERED: ASPIRIN 81 MG TAB.CHEW PO SCH (09:00)
[2018-06-21] MEDS ORDERED: FURO40TA5 PO (10:44)
[2018-06-21] MEDS ORDERED: CARV6.252 PO (10:44)
[2018-06-21] MEDS ORDERED: TAMS-3 PO (10:44)
[2018-06-21] MEDS ORDERED: LOSA25TA3 PO (10:44)
[2018-06-21 11:54] VITALS: BP 116/78
--- NOTE | 2018-06-21 12:15 | NUR ---
PATIENT DISCHARGED TO SELF CARE. PATIENT STATED WILL FOLLOW UP OWN APPOINTMENT WITH MD/CLINIC. DISCHARGE TEACHINGS PROVIDED, PATIENT VERBALIZED UNDERSTANDING. IV ACCESS AND ID BAND REMOVED. PATIENT STATED WILL CALL [facility] "I HAVE AN [facility] ACCOUNT". RAJWINDER ASSISTED PATIENT WITH TRANSPORTATION. Addendum: 06/21/18 at 1226 by JJ BRADY RN ADD: INSTRUCTED PATIENT TO LEGAL EDITOR MEDICATION/NEW PRESCRIPTION AT HIS PREFERRED PHARMACY AND TAKE MEDICATIONS PRESCRIBED AND PER MD'S ORDER. PATIENT VERBALIZED UNDERSTANDING.
--- NOTE | 2018-06-21 12:26 | NUR ---
PATIENT LEFT THE UNIT AMBULATORY, IN NO DISTRESS.
--- NOTE | 2018-06-21 12:45 | NUR ---
FAXED PRESCRIPTION TO [facility]. CONFIRMATION VIA FAX REPORT
== END 2018-06-21 12:30 | disposition home or self-care (01) | DRG 776 ==
LOC: ER 19:14 → TELE 23:00 → MED 06-20 18:36
PROVIDERS: ADMIT Nurse Practitioner Acute Care; ATTEND Nurse Practitioner Acute Care
DX: F15.188 Other stimulant abuse with other stimulant-induced disorder (principal); I50.23 Acute on chronic systolic (congestive) heart failure; I42.9 Cardiomyopathy, unspecified; E83.42 Hypomagnesemia; K76.0 Fatty (change of) liver, not elsewhere classified; I48.0 Paroxysmal atrial fibrillation; I11.0 Hypertensive heart disease with heart failure; R07.89 Other chest pain; E05.90 Thyrotoxicosis, unspecified without thyrotoxic crisis or storm; F17.210 Nicotine dependence, cigarettes, uncomplicated; Z91.14 Patient's other noncompliance with medication regimen; I48.2 Chronic atrial fibrillation; I34.0 Nonrheumatic mitral (valve) insufficiency; I44.4 Left anterior fascicular block; Z79.899 Other long term (current) drug therapy; Z79.82 Long term (current) use of aspirin; N40.1 Benign prostatic hyperplasia with lower urinary tract symptoms; R33.8 Other retention of urine; F19.10 Other psychoactive substance abuse, uncomplicated; Z59.0 Homelessness; I25.2 Old myocardial infarction; Z79.01 Long term (current) use of anticoagulants; F12.90 Cannabis use, unspecified, uncomplicated; M19.90 Unspecified osteoarthritis, unspecified site; Z86.59 Personal history of other mental and behavioral disorders
CPT/HCPCS: 36415; 70030-TC; 71045; 76700; 83690; 83735; 84100; 85025; 85730; 93005; A4663; J1650; J2270; J2405; J3475; J7050

== ENCOUNTER 2018-06-27 07:18 | Emergency (ER) | payer OTHER ==
[~2018-06-27] VITALS: Ht 172.7 cm; Wt 63.5 kg
[~2018-06-27 07:18] MED LIST changes: -ASPI81TA31 PO; +CARV6.252 PO; -DILT60TA35 PO; +LOSA25TA3 PO; -PROP10TA68 PO; +TAMS-3 PO
[2018-06-27 07:46] LABS: BASOPHILS # (AUTO) 0.1 K/uL (0.0-8.0); BASOPHILS % (AUTO) 0.7 % (0.0-2.0); EOSINOPHILS # (AUTO) 0.1 K/uL (0.0-0.7); EOSINOPHILS % (AUTO) 1.3 % (0.0-7.0); HEMATOCRIT 44.3 % (36.7-47.1); HEMOGLOBIN 14.4 g/dL (12.5-16.3); LYMPHOCYTES # (AUTO) 1.3 K/uL (20.0-40.0); MEAN CORPUSCULAR HEMOGLOBIN 27.7 uug (23.8-33.4); MEAN CORPUSCULAR HGB CONC 32 g/dL (32.5-36.3); MEAN CORPUSCULAR VOLUME 85.5 fL (73.0-96.2); MONOCYTES # (AUTO) 0.7 K/uL (2.0-10.0); MONOCYTES % (AUTO) 8.8 % (0.0-11.0); NEUTROPHILS % (AUTO) 73.2 % (38.5-71.5); PLATELET COUNT (AUTO) 205 K/uL (152-348); RED BLOOD CELL COUNT(AUTO) 5.18 MIL/uL (4.06-5.63); WHITE BLOOD COUNT (AUTO) 8.1 K/uL (3.6-10.2)
[2018-06-27 07:56] LABS: CREATININE 0.8 mg/dL (0.6-1.3); POTASSIUM 4.5 mmol/L (3.5-5.1)
--- NOTE | 2018-06-27 08:05 | NUR ---
recieved pt in bed. resting, no sign of distress.
[2018-06-27 08:08] LABS: BILIRUBIN,DIRECT 0.4 mg/dL (0.0-0.2); BILIRUBIN,TOTAL 0.8 mg/dL (0.2-1.0); TOTAL PROTEIN, SERUM 6.9 g/dL (6.4-8.2)
--- NOTE | 2018-06-27 08:50 | NUR ---
pt fifnished [address] [place] [address] tray. pt deneis any cp, n/v, sob or dizziness at this time. pt happy to be c/latosha.pt walks in steay gait. Patient discharged to home in stable conditon. Written and verbal after care instructions given. Patient verbalizes understanding of instructions.
[2018-06-27 08:53] VITALS: BP 139/89
== END 2018-06-27 08:55 | disposition home or self-care (01) ==
LOC: ER 07:18
DX: R07.9 Chest pain, unspecified (principal); I10 Essential (primary) hypertension; F15.10 Other stimulant abuse, uncomplicated; F17.200 Nicotine dependence, unspecified, uncomplicated; Z59.0 Homelessness; Z88.5 Allergy status to narcotic agent
CPT/HCPCS: 36415; 70030-TC; 71045; 83690; 85025; 93005; A4663

== ENCOUNTER 2018-07-08 01:33 | Emergency (ER) | payer OTHER ==
[~2018-07-08] VITALS: Ht 172.7 cm; Wt 65.8 kg
--- NOTE | 2018-07-08 01:45 | NUR ---
Dr. Spence at bedside for MSE.
[2018-07-08] MEDS ORDERED: IV NORMAL SALINE 1000 ML BAG IV ONE (02:00)
[2018-07-08] MEDS ORDERED: PANTOPRAZOLE SODIUM 40 MG VIAL IV ONE (02:00)
--- NOTE | 2018-07-08 02:08 | NUR ---
PT STATES HAS NOT TAKEN ANY MEDS IN ABOUT 2 WEEKS WHEN HE WAS HERE LAST
[2018-07-08 02:11] LABS: BASOPHILS # (AUTO) 0.1 K/uL (0.0-8.0); BASOPHILS % (AUTO) 1.1 % (0.0-2.0); EOSINOPHILS # (AUTO) 0.1 K/uL (0.0-0.7); EOSINOPHILS % (AUTO) 2.5 % (0.0-7.0); HEMATOCRIT 43.8 % (36.7-47.1); HEMOGLOBIN 14.4 g/dL (12.5-16.3); LYMPHOCYTES # (AUTO) 1.3 K/uL (20.0-40.0); LYMPHOCYTES % (AUTO) 22.4 % (20.5-51.5); MEAN CORPUSCULAR HEMOGLOBIN 27.6 uug (23.8-33.4); MEAN CORPUSCULAR HGB CONC 33 g/dL (32.5-36.3); MEAN CORPUSCULAR VOLUME 83.7 fL (73.0-96.2); MONOCYTES # (AUTO) 0.7 K/uL (2.0-10.0); MONOCYTES % (AUTO) 11.6 % (0.0-11.0); NEUTROPHILS # (AUTO) 3.6 K/uL (1.8-8.9); NEUTROPHILS % (AUTO) 62.4 % (38.5-71.5); PLATELET COUNT (AUTO) 205 K/uL (152-348); RED BLOOD CELL COUNT(AUTO) 5.23 MIL/uL (4.06-5.63); WHITE BLOOD COUNT (AUTO) 5.8 K/uL (3.6-10.2)
[2018-07-08] MEDS ORDERED: PANTOPRAZOLE SODIUM 40 MG VIAL ONE (02:16)
[2018-07-08 02:35] LABS: POTASSIUM 4.1 mmol/L (3.5-5.1)
[2018-07-08 02:40] LABS: BILIRUBIN,DIRECT 0.4 mg/dL (0.0-0.2); BILIRUBIN,TOTAL 0.8 mg/dL (0.2-1.0); TOTAL PROTEIN, SERUM 6.8 g/dL (6.4-8.2)
--- NOTE | 2018-07-08 02:40 | NUR ---
Pt out of ER for CT.
[2018-07-08] MEDS ORDERED: IV NS 1000 ML 1,000 ML IV ONE (03:45)
[2018-07-08] MEDS ORDERED: ONDANSETRON 4 MG/2 ML VIAL IV PRN (03:45)
[2018-07-08] MEDS ORDERED: Z GUARD REMEDY PASTE 57 GM TUBE TOP PRN (03:45)
[2018-07-08] MEDS ORDERED: ACETAMINOPHEN 325 MG TABLET PO PRN (03:45)
[2018-07-08] MEDS ORDERED: HYDROCODONE/APAP 5-325MG TABLET PO PRN (03:45)
[2018-07-08] MEDS ORDERED: MAGNESIUM HYDROXIDE 30 ML LIQUID UDC PO PRN (03:45)
[2018-07-08] MEDS ORDERED: LET TOPICAL SOLUTION 8 ML UDC ONE (03:57)
[2018-07-08] MEDS ORDERED: LET TOPICAL SOLUTION 8 ML UDC TP ONE (04:00)
[2018-07-08] MEDS ORDERED: HYDROCODONE/APAP 5-325MG TABLET PO ONE (04:15)
[2018-07-08] MEDS ORDERED: HYDROCODONE/APAP 5-325MG TABLET ONE (04:22)
--- NOTE | 2018-07-08 04:40 | NUR ---
Patient eloped from facility. ER physician notified. Pt was found to have a white crystal/powder substance in a small ziploc bag in his backpack, charge nurse and security was notified, while report was being given to [facility] pending patient transfer; patient got dressed and started running out of ER. Physical Therapy Attendant aware. Instructed to call [employer] nonemergency line by casualty claims supervisor.
--- NOTE | 2018-07-08 04:49 | NUR ---
Called [facility] nonemergency line dispatch, spoke with enamel machine operator #[phone], report made about the incident.
--- NOTE | 2018-07-08 05:00 | NUR ---
[employer] officers arrived to ER. Report given. White crystal substance given to [employer] officers. Incident report filed.
[2018-07-08] MEDS ORDERED: CARVEDILOL 6.25 MG TABLET PO SCH (08:00)
[2018-07-08] MEDS ORDERED: LOSARTAN POTASSIUM 25 MG TABLET PO SCH (09:00)
[2018-07-08] MEDS ORDERED: METHIMAZOLE 5 MG TABLET PO SCH (09:00)
[2018-07-08] MEDS ORDERED: RIVAROXABAN 10 MG TABLET PO SCH (18:00)
[2018-07-08] MEDS ORDERED: TAMSULOSIN HCL 0.4 MG CAP.SR.24H PO SCH (21:00)
== END 2018-07-08 05:18 | disposition left against medical advice (07) ==
LOC: ER 01:35
DX: I21.4 Non-ST elevation (NSTEMI) myocardial infarction (principal); R10.84 Generalized abdominal pain; N20.0 Calculus of kidney; I10 Essential (primary) hypertension; F15.10 Other stimulant abuse, uncomplicated; I25.2 Old myocardial infarction; F17.200 Nicotine dependence, unspecified, uncomplicated; Z88.5 Allergy status to narcotic agent; Z59.0 Homelessness
CPT/HCPCS: 36415; 70030-TC; 71045; 83690; 85025; 85730; 93005; A4663; C9113; J7030

== ENCOUNTER 2018-07-15 07:46 | Inpatient (IN) | payer OTHER ==
[~2018-07-15] VITALS: Ht 172.7 cm; Wt 63.5 kg
--- NOTE | 2018-07-15 07:55 | NUR ---
patient in room being triaged. vital signs noted. patient on atrial fibrillation with RVR 120/min. patiet is also short of breath and coughing. 12 lead ekg glover o2 sat on room air 99 - 100%, placed on o1 2l nasal cannula. lab here to draw blood.
[2018-07-15 08:21] LABS: BASOPHILS # (AUTO) 0.1 K/uL (0.0-8.0); BASOPHILS % (AUTO) 1.7 % (0.0-2.0); EOSINOPHILS # (AUTO) 0.1 K/uL (0.0-0.7); EOSINOPHILS % (AUTO) 2.2 % (0.0-7.0); HEMATOCRIT 44.3 % (36.7-47.1); HEMOGLOBIN 14.6 g/dL (12.5-16.3); LYMPHOCYTES # (AUTO) 1.5 K/uL (20.0-40.0); LYMPHOCYTES % (AUTO) 23.1 % (20.5-51.5); MEAN CORPUSCULAR HEMOGLOBIN 27.9 uug (23.8-33.4); MEAN CORPUSCULAR HGB CONC 33 g/dL (32.5-36.3); MEAN CORPUSCULAR VOLUME 84.9 fL (73.0-96.2); MONOCYTES # (AUTO) 0.7 K/uL (2.0-10.0); NEUTROPHILS # (AUTO) 4.2 K/uL (1.8-8.9); PLATELET COUNT (AUTO) 178 K/uL (152-348); RED BLOOD CELL COUNT(AUTO) 5.22 MIL/uL (4.06-5.63); WHITE BLOOD COUNT (AUTO) 6.7 K/uL (3.6-10.2)
[2018-07-15 08:29] LABS: CARBON DIOXIDE 20 mmol/L (21-32); CHLORIDE 106 mmol/L (98-107); CREATININE 0.8 mg/dL (0.6-1.3); GLUCOSE 174 mg/dL (74-106); POTASSIUM 3.8 mmol/L (3.5-5.1); UREA NITROGEN, BLOOD 11 mg/dL (7-18)
--- NOTE | 2018-07-15 08:29 | NUR ---
multiple attempts to insert an IV site but unsuccessful. Dr Vilchis at the bedside, will attempt to insert an IV line.
[2018-07-15] MEDS ORDERED: DILTIAZEM HCL 25 MG IV IV ONE (08:30)
[2018-07-15] MEDS ORDERED: ASPIRIN 81 MG TAB.CHEW PO ONE (08:30)
[2018-07-15 08:35] LABS: ALANINE AMINOTRANSFERASE 48 U/L (16-63); ALKALINE PHOSPHATASE 132 U/L (50-136); ASPARTATE AMINOTRANSFERASE 43 U/L (15-37); BILIRUBIN,TOTAL 1.5 mg/dL (0.2-1.0)
[2018-07-15] MEDS ORDERED: LIDOCAINE/PRILOCAINE 5 GM CREAM.GM. ONE (08:35)
[2018-07-15] MEDS ORDERED: ASPIRIN 81 MG TAB.CHEW ONE (08:38)
[2018-07-15] MEDS ORDERED: DILTIAZEM HCL 25 MG IV ONE (08:38)
[2018-07-15 08:43] LABS: THYROID STIMULATING HORMONE < 0.007 mIU/mL (0.358-3.740)
[2018-07-15] MEDS ORDERED: DILTIAZEM HCL 60 MG TABLET PO ONE (10:00)
[2018-07-15] MEDS ORDERED: NITROGLYCERIN 0.4 MG/TAB BOTTLE SL ONE ×2 (10:00→10:03)
--- NOTE | 2018-07-15 10:20 | NUR ---
roxy rn at bedside to insert mid line.
--- NOTE | 2018-07-15 10:32 | NUR ---
called [facility] for admission
[2018-07-15] MEDS ORDERED: MORPHINE SULFATE 2 MG/1 ML DISP.SYRIN IV PRN (11:15)
[2018-07-15] MEDS ORDERED: ACETAMINOPHEN 325 MG TABLET PO PRN (11:15)
[2018-07-15] MEDS ORDERED: NITROGLYCERIN 0.4 MG/TAB BOTTLE SL PRN (11:15)
[2018-07-15] MEDS ORDERED: ONDANSETRON 4 MG/2 ML VIAL IV PRN (11:15)
[2018-07-15 12:15] VITALS: BP 128/89
--- NOTE | 2018-07-15 12:15 | NUR ---
Received this admission from ER per santiago, this 58 yo male, with the chief complaint/diagnosis of chest pain. Transferred to bed comfortably. Routine admission care rendered. Placed on Tele TD, Afib 92. Awake, alert, oriented x 4, able to move all extremities on purpose, ambulatory. Midline RUE, intact. Ophelia ADVENTURE GUIDE at bedside with admission orders. Still with chest pain 01/12.
--- NOTE | 2018-07-15 13:12 | NUR ---
At Radiology, for CT abdomen/pelvis without contrast
[2018-07-15] MEDS: LORAZEPAM 2 MG/1 ML VIAL IV PRN (14:18)
[2018-07-15] MEDS ORDERED: POTASSIUM CHLORIDE 20 MEQ in IV D5/ 0.9% NACL 1,000 ML IV PRN (15:00)
[2018-07-15 15:17] VITALS: BP 135/94
[2018-07-15] MEDS: PIPERACILLIN/TAZOBACTAM/D5W 50 ML IV SCH (15:35)
[2018-07-15] MEDS: MORPHINE SULFATE 4 MG/1 ML DISP.SYRIN IV PRN ×2 (16:34→20:23)
[2018-07-15] MEDS: FUROSEMIDE 40 MG/4 ML VIAL IV SCH (17:12)
[2018-07-15] MEDS: PROPRANOLOL HCL 10 MG TABLET PO SCH (17:12)
[2018-07-15] MEDS ORDERED: CARVEDILOL 6.25 MG TABLET PO SCH (18:00)
[2018-07-15] MEDS ORDERED: RIVAROXABAN 10 MG TABLET PO SCH (18:00)
[2018-07-15 18:53] LABS: *BILIRUBIN,URIN NEGATIVE (NEGATIVE); *BLOOD, URINE NEGATIVE (NEGATIVE); *CLARITY,URINE SLIGHTLY CLOUDY (CLEAR); *COLOR,URINE YELLOW (YELLOW); *KETONES,URINE NEGATIVE (NEGATIVE); *PROTEIN,URINE TRACE (NEGATIVE); LEUKOCYTE ESTERASE ,URINE NEGATIVE (NEGATIVE); NITRITE, URINE NEGATIVE (NEGATIVE); PH,URINE 5.5 (5.0-8.0); UGLUCOSE NEGATIVE (NEGATIVE)
[2018-07-15 19:00] VITALS: BP 105/74
[2018-07-15 19:00] LABS: *AMPHETAMINE, URINE POSITIVE (NEGATIVE); *BARBITURATE, URINE NEGATIVE (NEGATIVE); *CANNABINOID, URINE POSITIVE (NEGATIVE); *COCCAINE, URINE NEGATIVE (NEGATIVE); *OPIATE, URINE POSITIVE (NEGATIVE); *PHENCYCLIDINE SCREEN,URINE NEGATIVE (NEGATIVE)
[2018-07-15 19:06] LABS: BACTERIA,URINE NONE SEEN /HPF (NONE SEEN); RBC,URINE 0-3 /HPF (0-3); SQUAMOUS EPITHELIAL CELL,UR FEW /HPF (NONE SEEN)
--- NOTE | 2018-07-15 20:00 | NUR ---
Patient screaming and yelling in pain and running out of the room into the waiting area by the hallways. I tried to get him back to his room. He said "I would rather lay on the floor. I want to go AMA." I asked pt what helps with his bladder pain, he stated "flomax' and that it is due now so I can bring it. He said "why didn't you give it to me hours ago!?" I explained to pt that the medication is scheduled at bedtime but I can bring it now since it's due. Pt walked back to his room and stated again "I want to go AMA. Give me the papers. I will sign it." I presented the papers to pt in his room but now he is refusing to sign it. I asked if he wanted his medication now and he said I don't want any medication. I don't want you to take care of me." Nurse supervisor tumblers and charge nurse aware. Pt also refused his blood draw. I reminded pt to use the call light if he needs me. Pt stated "OK."
--- NOTE | 2018-07-15 20:06 | NUR ---
Pt pressing the call light asking for water. I explained he is NPO and he stated "I need water or else I leave." Pt also refusing to have his IV fluid attached to infuse. I explained risk and benefit, but patient still refusing. Pt sitting comfortably in bed at this time. Not screaming or yelling.
[2018-07-15] MEDS: TAMSULOSIN HCL 0.4 MG CAP.SR.24H PO SCH (20:22)
[2018-07-15 22:15] LABS: BILIRUBIN,DIRECT 0.4 mg/dL (0.0-0.2); BILIRUBIN,TOTAL 1.9 mg/dL (0.2-1.0)
[2018-07-16] VITALS: BP 136/72
[2018-07-16] MEDS: PIPERACILLIN/TAZOBACTAM/D5W 50 ML IV SCH ×3 (00:35→12:00)
[2018-07-16] MEDS: LORAZEPAM 2 MG/1 ML VIAL IV PRN (00:35)
[2018-07-16] MEDS: PROPRANOLOL HCL 10 MG TABLET PO SCH ×4 (00:36→18:10)
[2018-07-16] MEDS: MORPHINE SULFATE 4 MG/1 ML DISP.SYRIN IV PRN ×2 (02:43→11:46)
[2018-07-16 04:00] VITALS: BP 111/71
[2018-07-16 07:07] LABS: BASOPHILS # (AUTO) 0.1 K/uL (0.0-8.0); EOSINOPHILS # (AUTO) 0.2 K/uL (0.0-0.7); EOSINOPHILS % (AUTO) 4.4 % (0.0-7.0); HEMATOCRIT 43.6 % (36.7-47.1); HEMOGLOBIN 14.4 g/dL (12.5-16.3); LYMPHOCYTES # (AUTO) 1.2 K/uL (20.0-40.0); MEAN CORPUSCULAR HEMOGLOBIN 28.2 uug (23.8-33.4); MEAN CORPUSCULAR HGB CONC 33 g/dL (32.5-36.3); MEAN CORPUSCULAR VOLUME 85.2 fL (73.0-96.2); MONOCYTES # (AUTO) 0.6 K/uL (2.0-10.0); MONOCYTES % (AUTO) 10.8 % (0.0-11.0); NEUTROPHILS # (AUTO) 3.4 K/uL (1.8-8.9); NEUTROPHILS % (AUTO) 61.8 % (38.5-71.5); PLATELET COUNT (AUTO) 152 K/uL (152-348); RED BLOOD CELL COUNT(AUTO) 5.12 MIL/uL (4.06-5.63); WHITE BLOOD COUNT (AUTO) 5.5 K/uL (3.6-10.2)
--- NOTE | 2018-07-16 07:30 | NUR ---
Pt refused the HIDA scan this am. Pt continues to refuse to wear the telemetry. Pt verbalizes that he is not being treated fairly stating, " what about my needs!" yelling at the staff and being verbally abusive and insulting staff. Continue to monitor pt.
[2018-07-16 07:38] LABS: ALANINE AMINOTRANSFERASE 40 U/L (16-63); ALKALINE PHOSPHATASE 91 U/L (50-136); ASPARTATE AMINOTRANSFERASE 43 U/L (15-37); BILIRUBIN,TOTAL 2.5 mg/dL (0.2-1.0); CARBON DIOXIDE 29 mmol/L (21-32); CHLORIDE 105 mmol/L (98-107); CHOLESTEROL 53 mg/dL (<200); CREATININE 0.9 mg/dL (0.6-1.3); GLUCOSE 96 mg/dL (74-106); HDL CHOLESTEROL 20 mg/dL (40-60); MAGNESIUM 1.6 mg/dL (1.8-2.4); PHOSPHOROUS 3.7 mg/dL (2.5-4.9); POTASSIUM 3.8 mmol/L (3.5-5.1); THYROID STIMULATING HORMONE < 0.007 mIU/mL (0.358-3.740); TOTAL PROTEIN, SERUM 6.4 g/dL (6.4-8.2); TRIGLYCERIDES 50 MG/DL (30-150); UREA NITROGEN, BLOOD 14 mg/dL (7-18)
--- NOTE | 2018-07-16 08:00 | NUR ---
charge nurse spoke to pt about the consequences and benefits of the HIDA scan. Pt is agreeable to care and agreed to go down for the HIDA scan. Pt continues to refuse the telemetry leads.
[2018-07-16] MEDS ORDERED: FUROSEMIDE 40 MG TABLET PO SCH (09:00)
[2018-07-16] MEDS ORDERED: PANTOPRAZOLE SODIUM 40 MG VIAL IV SCH (09:00)
[2018-07-16] MEDS ORDERED: METHIMAZOLE 5 MG TABLET PO SCH (09:00)
[2018-07-16] MEDS ORDERED: LOSARTAN POTASSIUM 25 MG TABLET PO SCH (09:00)
[2018-07-16] MEDS: ASPIRIN 81 MG TAB.CHEW PO SCH (10:45)
[2018-07-16] MEDS: FUROSEMIDE 40 MG/4 ML VIAL IV SCH (10:45)
--- NOTE | 2018-07-16 10:54 | NUR ---
PT AGREED TO PUTTING ON THE TELEMETRY LEADS. CONTINUE TO MONITOR PT.
[2018-07-16] MEDS: MAGNESIUM SULFATE/D5W 100 ML IV SCH ×2 (11:03→11:50)
[2018-07-16 11:38] VITALS: BP 130/97
[2018-07-16] MEDS ORDERED: LIDOCAINE/PRILOCAINE 5 GM CREAM.GM. TP ONE (11:45)
[2018-07-16] MEDS: CLOTRIMAZOLE/BETAMET DIPROP CREAM 15 GM TUBE TOP SCH ×2 (12:26→21:28)
[2018-07-16] MEDS: PHENAZOPYRIDINE HCL 100 MG TABLET PO SCH ×2 (12:39→21:28)
--- NOTE | 2018-07-16 13:10 | NUR ---
PT DID NOT RECEIVE 2ND BAG OF MAGNESIUM. PT PULLED OUT MIDLINE. CONTACTED PHARMACY TO GIVE BACK CREDIT.
[2018-07-16] MEDS ORDERED: MAGNESIUM OXIDE 400 MG TABLET PO ONE (14:45)
[2018-07-16 16:00] VITALS: BP 129/81
[2018-07-16] MEDS ORDERED: FUROSEMIDE 40 MG/4 ML VIAL IV SCH (17:00)
[2018-07-16] MEDS: FUROSEMIDE 40 MG TABLET PO SCH (17:57)
[2018-07-16] MEDS: METHIMAZOLE 5 MG TABLET PO SCH (18:00)
[2018-07-16] MEDS: RIVAROXABAN 10 MG TABLET PO SCH (18:11)
--- NOTE | 2018-07-16 18:41 | NUR ---
PT OBSERVED SLEEPING IN BED WITH NO SIGNS OF RESPIRATORY DISTRESS. PT IS AOX4, RESISTANT TO CARE AT BEGINNING OF SHIFT. PT PULLED OUT MIDLINE. MIDLINE REMAINING MEASURES 10CM AND INTACT. UNABLE START NEW IV, COPY WRITER NOTIFIED AND ATTEMPTED. MD NOTIFIED, MEDICATION CHANGED TO PO. CONTINUE TO MONITOR PTS.
[2018-07-16 19:25] VITALS: BP 127/84
[2018-07-16] MEDS ORDERED: MORPHINE SULFATE 2 MG/1 ML DISP.SYRIN IM PRN (20:30)
[2018-07-16] MEDS: AMOXICILLIN-CLAVUL 875-125MG TABLET PO SCH (21:28)
[2018-07-16] MEDS: TAMSULOSIN HCL 0.4 MG CAP.SR.24H PO SCH (21:28)
[2018-07-16] MEDS: MORPHINE SULFATE 4 MG/1 ML DISP.SYRIN IM PRN (21:36)
[2018-07-16 23:46] VITALS: BP 105/74
[2018-07-17] MEDS: PROPRANOLOL HCL 10 MG TABLET PO SCH ×6 (00:06→23:29)
[2018-07-17] MEDS ORDERED: LORAZEPAM 2 MG/1 ML VIAL ONE (02:21)
[2018-07-17] MEDS: MORPHINE SULFATE 4 MG/1 ML DISP.SYRIN IM PRN ×3 (02:29→20:51)
[2018-07-17] MEDS: LORAZEPAM 2 MG/1 ML VIAL IM PRN ×3 (03:16→19:54)
--- NOTE | 2018-07-17 03:23 | NUR ---
Pt constantly screaming for a nurse. He's stating he can't breathe. Vital signs are WNL and 02 sat is 97%. I gave him 2LNC for comfort and told him to deep breathe. As soon as I leave the room patient is screaming again. When I walk back in the room patient is quiet. I observe patient in bed with his eyes closed and he is calm. When patient opens his eyes and sees me standing there he begins to moan. I told patient he cannot be screaming at 3 in the morning since other patients are asleep. patient was given his morphine for pain by relief nurse an hour ago. Patient does not complain of pain at this time. Patient's behavior is extremely anxious. He keeps asking for snacks and calling for the nurse as soon as I leave the room.
[2018-07-17 03:34] VITALS: BP 115/87
[2018-07-17] MEDS: PHENAZOPYRIDINE HCL 100 MG TABLET PO SCH ×4 (05:55→22:06)
[2018-07-17 06:26] LABS: BASOPHILS # (AUTO) 0.1 K/uL (0.0-8.0); BASOPHILS % (AUTO) 1.4 % (0.0-2.0); EOSINOPHILS # (AUTO) 0.3 K/uL (0.0-0.7); EOSINOPHILS % (AUTO) 5.1 % (0.0-7.0); HEMATOCRIT 48.6 % (36.7-47.1); LYMPHOCYTES # (AUTO) 1.2 K/uL (20.0-40.0); LYMPHOCYTES % (AUTO) 21.7 % (20.5-51.5); MEAN CORPUSCULAR HEMOGLOBIN 27.4 uug (23.8-33.4); MEAN CORPUSCULAR HGB CONC 33 g/dL (32.5-36.3); MEAN CORPUSCULAR VOLUME 83.3 fL (73.0-96.2); MONOCYTES # (AUTO) 0.7 K/uL (2.0-10.0); MONOCYTES % (AUTO) 12.4 % (0.0-11.0); NEUTROPHILS # (AUTO) 3.3 K/uL (1.8-8.9); NEUTROPHILS % (AUTO) 59.4 % (38.5-71.5); PLATELET COUNT (AUTO) 195 K/uL (152-348); RED BLOOD CELL COUNT(AUTO) 5.83 MIL/uL (4.06-5.63); WHITE BLOOD COUNT (AUTO) 5.6 K/uL (3.6-10.2)
[2018-07-17 06:43] LABS: BILIRUBIN,DIRECT 0.4 mg/dL (0.0-0.2); BILIRUBIN,TOTAL 0.9 mg/dL (0.2-1.0)
[2018-07-17 06:46] LABS: CREATININE 0.8 mg/dL (0.6-1.3); MAGNESIUM 2.1 mg/dL (1.8-2.4); PHOSPHOROUS 3.3 mg/dL (2.5-4.9); POTASSIUM 4.1 mmol/L (3.5-5.1)
--- NOTE | 2018-07-17 08:00 | NUR ---
Pt denies chest pain, no signs of acute distress. Removal of mri ct tech intermittently. Discussed risk and benefits of mri ct tech. Remains A-fib controlled and uncontrolled at heart rate between 95 - 110. Continue observation.
[2018-07-17] MEDS: AMOXICILLIN-CLAVUL 875-125MG TABLET PO SCH ×2 (08:42→21:09)
[2018-07-17] MEDS: METHIMAZOLE 5 MG TABLET PO SCH ×3 (08:42→17:00)
[2018-07-17] MEDS: ASPIRIN 81 MG TAB.CHEW PO SCH (08:42)
[2018-07-17] MEDS: FUROSEMIDE 40 MG TABLET PO SCH ×2 (08:42→17:00)
--- NOTE | 2018-07-17 08:46 | NUR ---
IV Protonix not given, changed to PO med
[2018-07-17] MEDS: CLOTRIMAZOLE/BETAMET DIPROP CREAM 15 GM TUBE TOP SCH ×2 (08:53→21:09)
[2018-07-17] MEDS: PANTOPRAZOLE SODIUM 40 MG TABLET.DR PO SCH (10:47)
[2018-07-17 11:15] VITALS: BP 109/82
[2018-07-17 13:48] LABS: BILIRUBIN,DIRECT 0.3 mg/dL (0.0-0.2); BILIRUBIN,TOTAL 0.9 mg/dL (0.2-1.0)
--- NOTE | 2018-07-17 14:31 | NUR ---
Pt became restless and anxious, was very physically/verbally abusive to staff, accompanied pt back to the room. Pt complained of not feeling well. BP 106/81, oxygen saturation 88% on room air. Initiated oxygen on 5L NC, went up to 95%. Closely monitored
[2018-07-17 15:30] VITALS: BP 106/81
--- NOTE | 2018-07-17 16:13 | NUR ---
TO [facility] FOR MRCP W/O CONTRAST VIA AMBULANCE
[2018-07-17] MEDS: RIVAROXABAN 10 MG TABLET PO SCH (18:00)
--- NOTE | 2018-07-17 18:46 | NUR ---
Pt back from [facility], post MRCP. Refused 1800 medications, continues to be uncooperative, easily get anxious and agitated.
--- NOTE | 2018-07-17 19:00 | NUR ---
Received pt awake, alert, orientedx2. Pt shows no signs of distress. Pt uncooperative. No iv access. Will continue to monitor.
[2018-07-17 19:28] VITALS: BP 105/80
--- NOTE | 2018-07-17 19:45 | NUR ---
Hands off report to Lakhwinder , rn. Pt stable.
--- NOTE | 2018-07-17 19:50 | NUR ---
Patient is screaming & agitated at start of shift. Appears to be confused & shouting "Save me! Save me!". Patient stating that he is in pain. Will medicate per MD order & reassess. Vital signs are stable at beginning of shift. Patient refusing to be on Tele monitor & taking off Tele leads constantly. Will continue to monitor through shift.
[2018-07-17] MEDS: TAMSULOSIN HCL 0.4 MG CAP.SR.24H PO SCH (21:09)
[2018-07-17] MEDS ORDERED: LORAZEPAM 2 MG/1 ML VIAL IM ONE (23:45)
[2018-07-17] MEDS ORDERED: diphenhydrAMINE 50 MG/1 ML VIAL IM ONE (23:45)
[2018-07-17] MEDS ORDERED: HALOPERIDOL LACTATE 5 MG/1 ML VIAL IM ONE (23:45)
--- NOTE | 2018-07-17 23:45 | NUR ---
Patient noted to be extremely agitated, screaming & shouting in the hallways & being disruptive. Informed supervisor special education MOLDER FITTING Dawson with new orders of Ativan 1mg IM, Benadryl 50mg IM, & Haldol 2.5mg IM as a cocktail. New order to place patient back on Tele monitor once cocktail given and agitation is resolved. Will carry out order & continue to monitor.
--- NOTE | 2018-07-18 01:45 | NUR ---
Patient continues to be agitated, screaming, shouting and non compliant. Paged hydrogenation still operator HOSPICE VOLUNTEER mike with new order for STAT EKG. HOSPICE VOLUNTEER hydrogenation still operator also ordered another cocktail of Ativan 1mg IM, Benadryl 25mg IM, & Haldol 2.5mg IM. Will carry out order & continue to monitor.
[2018-07-18] MEDS ORDERED: HALOPERIDOL LACTATE 5 MG/1 ML VIAL IM ONE (02:00)
[2018-07-18] MEDS ORDERED: LORAZEPAM 2 MG/1 ML VIAL IM ONE (02:00)
[2018-07-18] MEDS ORDERED: diphenhydrAMINE 50 MG/1 ML VIAL IM ONE (02:00)
--- NOTE | 2018-07-18 02:15 | NUR ---
AMY Cortez ordered for a PET Crisis Team Eval. Oh from the crisis team was contacted. Patient cannot be seen by crisis team unless he has a Psych eval first. Will endorse to AM shift to contact for Psych eval.
--- NOTE | 2018-07-18 03:30 | NUR ---
Received order from Dana REYES for Ativan 2mg IVP. ER nurses at bedside to reinsert IV. IV inserted, ativan pushed but site infiltrated. IV removed. Wasted Ativan in Pyxis. Will attempt to restart IV. Sitter at bedside for safety.
[2018-07-18] MEDS: LORAZEPAM 2 MG/1 ML VIAL IV PRN ×3 (03:58→08:19)
--- NOTE | 2018-07-18 04:56 | NUR ---
IV reinserted to LUE 20G. Intact & patent. Patient given ordered dose of ativan 2mg IVP. Soft Mittens applied to bilateral hands, Tele monitor reapplied. Sinus rhythm on Tele monitor. Sitter at bedside.
[2018-07-18] MEDS: PHENAZOPYRIDINE HCL 100 MG TABLET PO SCH (06:00)
[2018-07-18] MEDS: PROPRANOLOL HCL 10 MG TABLET PO SCH ×2 (06:00→11:46)
[2018-07-18] MEDS: PANTOPRAZOLE SODIUM 40 MG TABLET.DR PO SCH (06:17)
--- NOTE | 2018-07-18 06:30 | NUR ---
Patient continues to shout & scream. Non compliant with AM medication pass & refuses vital signs to be checked. 1:1 sitter at the bedside for safety. All medications administered per MD order. Will endorse to day shift nurse.
[2018-07-18] MEDS: CLOTRIMAZOLE/BETAMET DIPROP CREAM 15 GM TUBE TOP SCH (08:22)
[2018-07-18] MEDS: ASPIRIN 81 MG TAB.CHEW PO SCH (08:32)
[2018-07-18] MEDS: FUROSEMIDE 40 MG TABLET PO SCH ×2 (08:32→16:51)
[2018-07-18] MEDS: AMOXICILLIN-CLAVUL 875-125MG TABLET PO SCH (08:32)
[2018-07-18] MEDS: METHIMAZOLE 5 MG TABLET PO SCH ×3 (08:33→16:51)
--- NOTE | 2018-07-18 09:06 | NUR ---
Pt moved to room 228-T with 1:1 sitter.
[2018-07-18] MEDS: MORPHINE SULFATE 4 MG/1 ML DISP.SYRIN IM PRN ×3 (09:41→15:11)
[2018-07-18 11:46] VITALS: BP 126/83
--- NOTE | 2018-07-18 12:38 | NUR ---
Spoke with ARGENIS Whittington and no psych consult needed for the pt at this time.
--- NOTE | 2018-07-18 15:11 | NUR ---
IV morphine not given. Per ARGENIS Whittington, no narcotic/sedatives to be given to pt at this time.
[2018-07-18] MEDS: RIVAROXABAN 10 MG TABLET PO SCH (17:46)
--- NOTE | 2018-07-18 19:14 | NUR ---
Spoke with ARGENIS Whittington on the telephone regarding pt's discharge. stated that it was okay to discharge pt once pt is more alert and awake enough to eat.
--- NOTE | 2018-07-18 20:06 | NUR ---
PER DOLLY TREVINO PATIENT IS MEDICALLY STABLE AND WITH FOR DISCHARGE .PATIENT NON COMPLIANT AND REFUSING TREATMENTS ,INFORMED NURSING CHIMNEY CONSTRUCTION SUPERVISOR SHERRY AND NURSING IN CHARGE EPI RN AWARE .
--- NOTE | 2018-07-18 20:10 | NUR ---
CALLED SECURITY AND ESCORTED PATIENT DOWN STAIRS WENT HOME WITH BELONGINGS AND PATIENT SIGNED BELONGINGS LIST . PATIENT AWAKE ,ALERT, STABLE V/S , NO RESPIRATORY DISTRESS NOTED,BREATHING EVEEN AND UNLABORED, DENIES PAIN WHEN ASKED.D/C HEPLOCK APPLIED GAUZE AND SECURE WITH TAPE .
[2018-07-19] MEDS ORDERED: PROPRANOLOL HCL 40 MG TABLET PO SCH (09:00)
[2018-07-19] MEDS ORDERED: PROPRANOLOL HCL 10 MG TABLET PO SCH (09:00)
== END 2018-07-18 20:15 | disposition home or self-care (01) | DRG 194 ==
LOC: ER 07:46 → DOU 11:32 → TELE-TD 11:53 → TELE 12:46 → TELE-TD 14:46 → TELE 17:47 → MED 07-18 18:49
PROVIDERS: ADMIT Internal Medicine; ATTEND Nurse Practitioner Acute Care
DX: I11.0 Hypertensive heart disease with heart failure (principal); E46 Unspecified protein-calorie malnutrition; D68.9 Coagulation defect, unspecified; E83.42 Hypomagnesemia; E87.1 Hypo-osmolality and hyponatremia; I42.9 Cardiomyopathy, unspecified; E88.09 Other disorders of plasma-protein metabolism, not elsewhere classified; I48.2 Chronic atrial fibrillation; F20.9 Schizophrenia, unspecified; K76.0 Fatty (change of) liver, not elsewhere classified; Z79.01 Long term (current) use of anticoagulants; F15.10 Other stimulant abuse, uncomplicated; I25.2 Old myocardial infarction; E05.90 Thyrotoxicosis, unspecified without thyrotoxic crisis or storm; F32.9 Major depressive disorder, single episode, unspecified; I34.0 Nonrheumatic mitral (valve) insufficiency; R74.0 Nonspecific elevation of levels of transaminase and lactic acid dehydrogenase [LDH]; F17.210 Nicotine dependence, cigarettes, uncomplicated; F41.9 Anxiety disorder, unspecified; Z86.73 Personal history of transient ischemic attack (TIA), and cerebral infarction without residual deficits; Z91.14 Patient's other noncompliance with medication regimen; Z59.0 Homelessness; N40.0 Benign prostatic hyperplasia without lower urinary tract symptoms; M19.90 Unspecified osteoarthritis, unspecified site; I50.43 Acute on chronic combined systolic (congestive) and diastolic (congestive) heart failure; E80.6 Other disorders of bilirubin metabolism; F19.10 Other psychoactive substance abuse, uncomplicated; Z68.21 Body mass index [BMI] 21.0-21.9, adult; Z86.19 Personal history of other infectious and parasitic diseases; F28 Other psychotic disorder not due to a substance or known physiological condition
CPT/HCPCS: 36415; 70030-TC; 71045; 74181; 76705; 78445; 80307; 83735; 84100; 84443; 84480; 84481; 85025; 85730; 87086; 93005; A4663; A9537; C9113; J1200; J1630; J1940; J2060; J2270; J2543; J3475; J3480; J3490; J7042

== ENCOUNTER 2018-08-11 02:49 | Inpatient (IN) | payer OTHER ==
[~2018-08-11] VITALS: Ht 172.7 cm; Wt 59.9 kg
[2018-08-11] MEDS ORDERED: ASPIRIN 81 MG TAB.CHEW PO ONE (03:00)
[2018-08-11] MEDS ORDERED: NITROGLYCERIN OINT 1 GM PACKET TP ONE ×2 (03:00→03:36)
[2018-08-11] MEDS ORDERED: METOPROLOL TARTRATE 5 MG/5 ML VIAL IVP ONE ×2 (03:00→03:35)
[2018-08-11] MEDS ORDERED: NITROGLYCERIN 0.4 MG/TAB BOTTLE SL ONE ×2 (03:00→03:35)
[2018-08-11] MEDS ORDERED: LORAZEPAM 2 MG/1 ML VIAL IV ONE (03:15)
[2018-08-11] MEDS ORDERED: LABETALOL HCL 100 MG/20 ML VIAL IV ONE (03:15)
[2018-08-11] MEDS ORDERED: ASPIRIN 81 MG TAB.CHEW ONE (03:35)
[2018-08-11] MEDS ORDERED: LORAZEPAM 0.5 MG TABLET PO ONE (03:45)
[2018-08-11] MEDS ORDERED: LABETALOL HCL 100 MG TABLET PO ONE (03:45)
[2018-08-11 03:49] LABS: BASOPHILS % (AUTO) 0.8 % (0.0-2.0); EOSINOPHILS # (AUTO) 0.1 K/uL (0.0-0.7); HEMATOCRIT 42.1 % (36.7-47.1); LYMPHOCYTES # (AUTO) 1.1 K/uL (20.0-40.0); MEAN CORPUSCULAR HGB CONC 33 g/dL (32.5-36.3); MONOCYTES # (AUTO) 0.7 K/uL (2.0-10.0); MONOCYTES % (AUTO) 12.8 % (0.0-11.0); NEUTROPHILS # (AUTO) 3.5 K/uL (1.8-8.9); NEUTROPHILS % (AUTO) 64.4 % (38.5-71.5); PLATELET COUNT (AUTO) 145 K/uL (152-348); RED BLOOD CELL COUNT(AUTO) 5.01 MIL/uL (4.06-5.63); WHITE BLOOD COUNT (AUTO) 5.4 K/uL (3.6-10.2)
[2018-08-11] MEDS ORDERED: LORAZEPAM 1 MG TABLET ONE (03:49)
[2018-08-11] MEDS ORDERED: LABETALOL HCL 100 MG TABLET ONE (03:49)
[2018-08-11 03:51] LABS: CREATININE 0.9 mg/dL (0.6-1.3)
[2018-08-11 04:04] LABS: BILIRUBIN,DIRECT 0.5 mg/dL (0.0-0.2); BILIRUBIN,TOTAL 0.9 mg/dL (0.2-1.0); TOTAL PROTEIN, SERUM 6.7 g/dL (6.4-8.2)
[2018-08-11] MEDS ORDERED: MAGNESIUM HYDROXIDE 30 ML LIQUID UDC PO PRN (08:15)
[2018-08-11] MEDS ORDERED: ACETAMINOPHEN 325 MG TABLET PO PRN (08:15)
[2018-08-11] MEDS ORDERED: ONDANSETRON 4 MG/2 ML VIAL IV PRN (08:15)
[2018-08-11] MEDS ORDERED: Z GUARD REMEDY PASTE 57 GM TUBE TOP PRN (08:15)
[2018-08-11] MEDS ORDERED: MORPHINE SULFATE 2 MG/1 ML DISP.SYRIN IV PRN (08:15)
[2018-08-11] MEDS ORDERED: NITROGLYCERIN 0.4 MG/TAB BOTTLE SL PRN (08:45)
[2018-08-11] MEDS ORDERED: MORPHINE SULFATE 4 MG/1 ML DISP.SYRIN IV PRN (08:45)
[2018-08-11] MEDS ORDERED: FUROSEMIDE 40 MG/4 ML VIAL IV SCH (09:00)
[2018-08-11] MEDS: NICOTINE 14 MG/24HR PATCH TD SCH (09:27)
[2018-08-11] MEDS: METHIMAZOLE 5 MG TABLET PO SCH (09:27)
[2018-08-11] MEDS: ASPIRIN EC 81 MG TABLET.DR PO SCH (09:28)
[2018-08-11] MEDS: CARVEDILOL 6.25 MG TABLET PO SCH ×2 (09:29→17:05)
[2018-08-11] MEDS: LOSARTAN POTASSIUM 25 MG TABLET PO SCH (09:32)
[2018-08-11 10:21] LABS: MAGNESIUM 1.7 mg/dL (1.8-2.4); PHOSPHOROUS 3.6 mg/dL (2.5-4.9)
[2018-08-11 12:00] VITALS: BP 128/85
[2018-08-11] MEDS ORDERED: MAGNESIUM SULFATE/D5W 100 ML IV SCH (12:15)
[2018-08-11] MEDS ORDERED: FUROSEMIDE 40 MG TABLET PO ONE ×2 (12:45→17:00)
[2018-08-11] MEDS ORDERED: MAGNESIUM OXIDE 400 MG TABLET PO ONE (12:45)
[2018-08-11] MEDS ORDERED: IPRATROPIUM BROMIDE 0.5 MG/2.5 ML NEBU NEB PRN (14:30)
[2018-08-11] MEDS ORDERED: ALBUTEROL SULFATE 2.5 MG/ 0.5 ML NEBU NEB PRN (14:30)
[2018-08-11 15:46] VITALS: BP 131/56
[2018-08-11] MEDS: RIVAROXABAN 10 MG TABLET PO SCH (17:07)
[2018-08-11 19:10] VITALS: BP 120/90
[2018-08-11] MEDS: TAMSULOSIN HCL 0.4 MG CAP.SR.24H PO SCH (20:37)
[2018-08-11] MEDS: HYDROCODONE/APAP 5-325MG TABLET PO PRN (22:56)
[2018-08-11] MEDS: ZOLPIDEM 5 MG TABLET PO PRN (23:30)
[2018-08-12 04:00] VITALS: BP_SYST 120; BP_SYST 125; BP_DIAS 65; BP_DIAS 97
[2018-08-12] MEDS: PANTOPRAZOLE SODIUM 40 MG TABLET.DR PO SCH (06:22)
[2018-08-12 07:54] VITALS: BP 125/88
[2018-08-12] MEDS: METHIMAZOLE 5 MG TABLET PO SCH (08:24)
[2018-08-12] MEDS: LOSARTAN POTASSIUM 25 MG TABLET PO SCH (08:24)
[2018-08-12] MEDS: CARVEDILOL 6.25 MG TABLET PO SCH ×2 (08:24→17:53)
[2018-08-12] MEDS: ASPIRIN EC 81 MG TABLET.DR PO SCH (08:24)
[2018-08-12] MEDS: NICOTINE 14 MG/24HR PATCH TD SCH (08:24)
[2018-08-12 12:17] LABS: BASOPHILS # (AUTO) 0.1 K/uL (0.0-8.0); BASOPHILS % (AUTO) 0.7 % (0.0-2.0); EOSINOPHILS # (AUTO) 0.1 K/uL (0.0-0.7); EOSINOPHILS % (AUTO) 1.6 % (0.0-7.0); HEMATOCRIT 46.6 % (36.7-47.1); HEMOGLOBIN 15.5 g/dL (12.5-16.3); LYMPHOCYTES # (AUTO) 0.6 K/uL (20.0-40.0); LYMPHOCYTES % (AUTO) 6.3 % (20.5-51.5); MEAN CORPUSCULAR HGB CONC 33 g/dL (32.5-36.3); MEAN CORPUSCULAR VOLUME 84.4 fL (73.0-96.2); MONOCYTES # (AUTO) 0.9 K/uL (2.0-10.0); MONOCYTES % (AUTO) 9.5 % (0.0-11.0); NEUTROPHILS # (AUTO) 7.5 K/uL (1.8-8.9); NEUTROPHILS % (AUTO) 81.9 % (38.5-71.5); PLATELET COUNT (AUTO) 158 K/uL (152-348); RED BLOOD CELL COUNT(AUTO) 5.52 MIL/uL (4.06-5.63); WHITE BLOOD COUNT (AUTO) 9.1 K/uL (3.6-10.2)
[2018-08-12 12:43] LABS: BILIRUBIN,DIRECT 0.5 mg/dL (0.0-0.2); BILIRUBIN,TOTAL 1.1 mg/dL (0.2-1.0); CREATININE 0.9 mg/dL (0.6-1.3); MAGNESIUM 1.8 mg/dL (1.8-2.4); PHOSPHOROUS 2.5 mg/dL (2.5-4.9); POTASSIUM 4.2 mmol/L (3.5-5.1); THYROID STIMULATING HORMONE 0.009 mIU/mL (0.358-3.740); TOTAL PROTEIN, SERUM 6.9 g/dL (6.4-8.2)
[2018-08-12 16:00] VITALS: BP 114/78
[2018-08-12 17:51] VITALS: BP 113/68
[2018-08-12] MEDS: RIVAROXABAN 10 MG TABLET PO SCH (17:54)
[2018-08-12 20:00] VITALS: BP 122/82
[2018-08-12] MEDS: TAMSULOSIN HCL 0.4 MG CAP.SR.24H PO SCH (20:31)
[2018-08-12] MEDS: HYDROCODONE/APAP 5-325MG TABLET PO PRN (20:32)
[2018-08-12] MEDS: ZOLPIDEM 5 MG TABLET PO PRN (21:18)
[2018-08-13 04:49] VITALS: BP 98/63
[2018-08-13] MEDS: PANTOPRAZOLE SODIUM 40 MG TABLET.DR PO SCH (06:20)
[2018-08-13] MEDS: METHIMAZOLE 5 MG TABLET PO SCH (08:25)
[2018-08-13] MEDS: NICOTINE 14 MG/24HR PATCH TD SCH (08:25)
[2018-08-13] MEDS: ASPIRIN EC 81 MG TABLET.DR PO SCH (08:26)
[2018-08-13] MEDS: CARVEDILOL 6.25 MG TABLET PO SCH (08:26)
[2018-08-13] MEDS: LOSARTAN POTASSIUM 25 MG TABLET PO SCH (08:27)
[2018-08-13 11:20] LABS: BASOPHILS % (AUTO) 0.6 % (0.0-2.0); EOSINOPHILS # (AUTO) 0.2 K/uL (0.0-0.7); HEMOGLOBIN 15.7 g/dL (12.5-16.3); LYMPHOCYTES # (AUTO) 0.9 K/uL (20.0-40.0); MONOCYTES # (AUTO) 0.7 K/uL (2.0-10.0); NEUTROPHILS # (AUTO) 4.1 K/uL (1.8-8.9)
[2018-08-13 11:23] VITALS: BP 102/68
[2018-08-13 11:27] LABS: EOSINOPHILS % (AUTO) 4.2 % (0.0-7.0); HEMATOCRIT 47.7 % (36.7-47.1); LYMPHOCYTES % (AUTO) 14.8 % (20.5-51.5); MEAN CORPUSCULAR HEMOGLOBIN 27.4 uug (23.8-33.4); MEAN CORPUSCULAR HGB CONC 33 g/dL (32.5-36.3); MEAN CORPUSCULAR VOLUME 82.9 fL (73.0-96.2); MONOCYTES % (AUTO) 11.2 % (0.0-11.0); NEUTROPHILS % (AUTO) 69.2 % (38.5-71.5); PLATELET COUNT (AUTO) 184 K/uL (152-348); RED BLOOD CELL COUNT(AUTO) 5.75 MIL/uL (4.06-5.63); WHITE BLOOD COUNT (AUTO) 5.9 K/uL (3.6-10.2)
[2018-08-13 11:34] LABS: CREATININE 0.9 mg/dL (0.6-1.3); MAGNESIUM 1.9 mg/dL (1.8-2.4); PHOSPHOROUS 2.9 mg/dL (2.5-4.9); POTASSIUM 4.3 mmol/L (3.5-5.1)
[2018-08-13 15:24] VITALS: BP 114/80
[2018-08-13 15:50] VITALS: BP 114/80
== END 2018-08-13 15:50 | disposition home or self-care (01) | DRG 194 ==
LOC: ER 02:52 → TELE 05:08 → MED 12:00
PROVIDERS: ADMIT Internal Medicine; ATTEND Nurse Practitioner Acute Care
PROC: 05HY33Z Insertion of Infusion Device into Upper Vein, Percutaneous Approach (ICD-10-PCS; principal; 2018-08-12)
DX: I11.0 Hypertensive heart disease with heart failure (principal); I50.23 Acute on chronic systolic (congestive) heart failure; E44.1 Mild protein-calorie malnutrition; I42.9 Cardiomyopathy, unspecified; F15.10 Other stimulant abuse, uncomplicated; F11.10 Opioid abuse, uncomplicated; E87.1 Hypo-osmolality and hyponatremia; E83.42 Hypomagnesemia; F20.9 Schizophrenia, unspecified; R07.9 Chest pain, unspecified; Z68.20 Body mass index [BMI] 20.0-20.9, adult; I48.91 Unspecified atrial fibrillation; E05.90 Thyrotoxicosis, unspecified without thyrotoxic crisis or storm; I25.2 Old myocardial infarction; Z86.73 Personal history of transient ischemic attack (TIA), and cerebral infarction without residual deficits; Z86.19 Personal history of other infectious and parasitic diseases; Z91.19 Patient's noncompliance with other medical treatment and regimen; Z59.0 Homelessness; F17.210 Nicotine dependence, cigarettes, uncomplicated; N40.0 Benign prostatic hyperplasia without lower urinary tract symptoms; F41.8 Other specified anxiety disorders; F12.90 Cannabis use, unspecified, uncomplicated; Z91.14 Patient's other noncompliance with medication regimen
CPT/HCPCS: 36415; 70030-TC; 71045; 83735; 84100; 84443; 85025; 85610; 85730; 93005; 94664; A4663; J1940; J3490; J3590

== ENCOUNTER 2018-11-13 13:35 | Inpatient (IN) | payer OTHER ==
[~2018-11-13] VITALS: Ht 172.7 cm; Wt 58.1 kg
[2018-11-13 14:14] LABS: BASOPHILS # (AUTO) 0.1 K/uL (0.0-8.0); BASOPHILS % (AUTO) 0.9 % (0.0-2.0); EOSINOPHILS # (AUTO) 0.1 K/uL (0.0-0.7); EOSINOPHILS % (AUTO) 0.9 % (0.0-7.0); HEMATOCRIT 47.7 % (36.7-47.1); LYMPHOCYTES % (AUTO) 12.5 % (20.5-51.5); MEAN CORPUSCULAR HEMOGLOBIN 28.7 uug (23.8-33.4); MEAN CORPUSCULAR HGB CONC 34 g/dL (32.5-36.3); MEAN CORPUSCULAR VOLUME 85.6 fL (73.0-96.2); MONOCYTES # (AUTO) 0.7 K/uL (2.0-10.0); MONOCYTES % (AUTO) 9.3 % (0.0-11.0); NEUTROPHILS # (AUTO) 5.9 K/uL (1.8-8.9); NEUTROPHILS % (AUTO) 76.4 % (38.5-71.5); PLATELET COUNT (AUTO) 208 K/uL (152-348); RED BLOOD CELL COUNT(AUTO) 5.57 MIL/uL (4.06-5.63); WHITE BLOOD COUNT (AUTO) 7.7 K/uL (3.6-10.2)
[2018-11-13] MEDS ORDERED: DILTIAZEM HCL 25 MG IV IV ONE ×2 (14:15→15:00)
[2018-11-13] MEDS ORDERED: DILTIAZEM HCL 25 MG IV ONE ×2 (14:20→15:06)
[2018-11-13 14:22] LABS: CREATININE 0.9 mg/dL (0.6-1.3); POTASSIUM 4.3 mmol/L (3.5-5.1)
[2018-11-13] MEDS ORDERED: LORAZEPAM 2 MG/1 ML VIAL IV ONE ×2 (14:30→15:00)
[2018-11-13] MEDS ORDERED: LORAZEPAM 2 MG/1 ML VIAL ONE ×2 (14:34→15:07)
[2018-11-13 14:35] LABS: BILIRUBIN,DIRECT 0.6 mg/dL (0.0-0.2); BILIRUBIN,TOTAL 1.8 mg/dL (0.2-1.0); TOTAL PROTEIN, SERUM 7.6 g/dL (6.4-8.2)
[2018-11-13] MEDS ORDERED: DILTIAZEM HCL 60 MG TABLET ONE (14:41)
[2018-11-13] MEDS ORDERED: DILTIAZEM HCL CD 120 MG CAP.SR.24H PO ONE ×2 (14:42→14:45)
[2018-11-13] MEDS ORDERED: IV NORMAL SALINE 1000 ML BAG IV ONE (15:00)
[2018-11-13] MEDS ORDERED: ASPIRIN 81 MG TAB.CHEW ONE (15:24)
[2018-11-13] MEDS ORDERED: NITROGLYCERIN OINT 1 GM PACKET TP ONE ×2 (15:24→15:30)
[2018-11-13] MEDS ORDERED: ASPIRIN 81 MG TAB.CHEW PO ONE (15:30)
[2018-11-13 17:10] VITALS: BP 111/69
[2018-11-13] MEDS ORDERED: ONDANSETRON 4 MG/2 ML VIAL IV PRN (17:45)
[2018-11-13] MEDS ORDERED: ZOLPIDEM 5 MG TABLET PO PRN (17:45)
[2018-11-13] MEDS ORDERED: MAGNESIUM HYDROXIDE 30 ML LIQUID UDC PO PRN (17:45)
[2018-11-13] MEDS ORDERED: ACETAMINOPHEN 325 MG TABLET PO PRN (17:45)
[2018-11-13] MEDS: IV NS 1000 ML 1,000 ML IV PRN (18:09)
[2018-11-13] MEDS: CARVEDILOL 6.25 MG TABLET PO SCH (18:22)
[2018-11-13] MEDS: RIVAROXABAN 10 MG TABLET PO SCH (18:23)
[2018-11-13] MEDS: AZITHROMYCIN IV 500 MG in IV DEXTROSE 5% 250 ML IV SCH (18:25)
[2018-11-13] MEDS ORDERED: QUETIAPINE FUMARATE 25 MG TABLET PO STA (19:06)
[2018-11-13 19:19] VITALS: BP 102/57
[2018-11-13] MEDS: TAMSULOSIN HCL 0.4 MG CAP.SR.24H PO SCH (20:16)
[2018-11-13] MEDS: CEFTRIAXONE 1 G in IV DEXTROSE 5% 50 ML IV SCH (20:16)
[2018-11-13 23:23] VITALS: BP 91/56
[2018-11-14] MEDS ORDERED: LORAZEPAM 2 MG/1 ML VIAL IV PRN (00:45)
[2018-11-14 03:37] VITALS: BP 99/67
[2018-11-14] MEDS: FUROSEMIDE 40 MG TABLET PO SCH (09:31)
[2018-11-14] MEDS: CARVEDILOL 6.25 MG TABLET PO SCH ×2 (09:31→18:00)
[2018-11-14] MEDS: METHIMAZOLE 5 MG TABLET PO SCH (09:31)
[2018-11-14] MEDS: LOSARTAN POTASSIUM 25 MG TABLET PO SCH (09:31)
[2018-11-14] MEDS ORDERED: MORPHINE SULFATE 2 MG/1 ML DISP.SYRIN IV PRN (11:45)
[2018-11-14] MEDS ORDERED: MORPHINE SULFATE 4 MG/1 ML DISP.SYRIN IV PRN (11:54)
[2018-11-14 12:00] VITALS: BP 106/76
[2018-11-14 12:04] LABS: BASOPHILS % (AUTO) 0.9 % (0.0-2.0); EOSINOPHILS # (AUTO) 0.1 K/uL (0.0-0.7); HEMATOCRIT 43.7 % (36.7-47.1); HEMOGLOBIN 14.6 g/dL (12.5-16.3); LYMPHOCYTES # (AUTO) 1.2 K/uL (20.0-40.0); LYMPHOCYTES % (AUTO) 20.4 % (20.5-51.5); MEAN CORPUSCULAR HEMOGLOBIN 28.6 uug (23.8-33.4); MEAN CORPUSCULAR HGB CONC 34 g/dL (32.5-36.3); MEAN CORPUSCULAR VOLUME 85.4 fL (73.0-96.2); MONOCYTES # (AUTO) 0.7 K/uL (2.0-10.0); MONOCYTES % (AUTO) 12.8 % (0.0-11.0); NEUTROPHILS # (AUTO) 3.7 K/uL (1.8-8.9); NEUTROPHILS % (AUTO) 63.9 % (38.5-71.5); PLATELET COUNT (AUTO) 191 K/uL (152-348); RED BLOOD CELL COUNT(AUTO) 5.11 MIL/uL (4.06-5.63); WHITE BLOOD COUNT (AUTO) 5.7 K/uL (3.6-10.2)
[2018-11-14 12:19] LABS: CREATININE 0.8 mg/dL (0.6-1.3); MAGNESIUM 1.7 mg/dL (1.8-2.4); PHOSPHOROUS 2.5 mg/dL (2.5-4.9); POTASSIUM 3.9 mmol/L (3.5-5.1)
[2018-11-14] MEDS: IV NS 1000 ML 1,000 ML IV PRN (12:55)
[2018-11-14] MEDS: HYDROCODONE/APAP 5-325MG TABLET PO PRN ×2 (15:33→21:05)
[2018-11-14 16:00] VITALS: BP 99/71
[2018-11-14] MEDS: RIVAROXABAN 10 MG TABLET PO SCH (18:38)
[2018-11-14] MEDS: AZITHROMYCIN IV 500 MG in IV DEXTROSE 5% 250 ML IV SCH (19:33)
[2018-11-14 20:30] VITALS: BP 105/78
[2018-11-14] MEDS: TAMSULOSIN HCL 0.4 MG CAP.SR.24H PO SCH (21:04)
[2018-11-14] MEDS: CULTURELLE CAPSULE PO SCH (21:04)
[2018-11-14] MEDS: CEFTRIAXONE 1 G in IV DEXTROSE 5% 50 ML IV SCH (21:05)
[2018-11-15 00:42] VITALS: BP 113/83
[2018-11-15] MEDS: HYDROCODONE/APAP 5-325MG TABLET PO PRN ×2 (04:48→10:39)
[2018-11-15 05:46] VITALS: BP 116/84
[2018-11-15] MEDS: LOSARTAN POTASSIUM 25 MG TABLET PO SCH (10:38)
[2018-11-15] MEDS: CULTURELLE CAPSULE PO SCH (10:38)
[2018-11-15] MEDS: METHIMAZOLE 5 MG TABLET PO SCH (10:39)
[2018-11-15] MEDS: FUROSEMIDE 40 MG TABLET PO SCH (10:39)
[2018-11-15 11:05] VITALS: BP 110/86
[2018-11-15] MEDS ORDERED: KETOROLAC TROMETHAMINE 15 MG INJ IVP ONE (12:45)
[2018-11-15] MEDS ORDERED: BENZONATATE 100 MG CAPSULE PO SCH (14:00)
== END 2018-11-15 14:15 | disposition left against medical advice (07) | DRG 139 ==
LOC: ER 13:35 → TELE 16:08
PROVIDERS: ADMIT Nurse Practitioner Acute Care; ATTEND Nurse Practitioner Acute Care
DX: J15.9 Unspecified bacterial pneumonia (principal); G92 Toxic encephalopathy; I42.7 Cardiomyopathy due to drug and external agent; F32.3 Major depressive disorder, single episode, severe with psychotic features; I11.0 Hypertensive heart disease with heart failure; E87.1 Hypo-osmolality and hyponatremia; E44.1 Mild protein-calorie malnutrition; I50.22 Chronic systolic (congestive) heart failure; F11.20 Opioid dependence, uncomplicated; I48.92 Unspecified atrial flutter; I48.0 Paroxysmal atrial fibrillation; E05.90 Thyrotoxicosis, unspecified without thyrotoxic crisis or storm; J20.9 Acute bronchitis, unspecified; F20.9 Schizophrenia, unspecified; K76.0 Fatty (change of) liver, not elsewhere classified; B19.20 Unspecified viral hepatitis C without hepatic coma; F15.188 Other stimulant abuse with other stimulant-induced disorder; Z79.01 Long term (current) use of anticoagulants; Z59.0 Homelessness; F17.210 Nicotine dependence, cigarettes, uncomplicated; Z91.19 Patient's noncompliance with other medical treatment and regimen; N40.0 Benign prostatic hyperplasia without lower urinary tract symptoms; F19.10 Other psychoactive substance abuse, uncomplicated; Z86.73 Personal history of transient ischemic attack (TIA), and cerebral infarction without residual deficits; I25.2 Old myocardial infarction; Z68.1 Body mass index [BMI] 19.9 or less, adult; F41.9 Anxiety disorder, unspecified; Z91.14 Patient's other noncompliance with medication regimen; Z79.899 Other long term (current) drug therapy; M19.90 Unspecified osteoarthritis, unspecified site
CPT/HCPCS: 36415; 70030-TC; 71045; 83735; 84100; 84443; 85025; 87400; 93005; 93307; A4663; G0378; J0456; J0696; J1885; J2060; J2270; J3490; J7030; J7050; J7060

== ENCOUNTER 2018-11-16 01:57 | Inpatient (IN) | payer OTHER ==
[~2018-11-16] VITALS: Ht 172.7 cm; Wt 64.4 kg
--- NOTE | 2018-11-16 02:10 | NUR ---
Pt. ambulated into ED w/ s/o SOB and 4/10 CP x 3 hours, pt. left AMA from inpatient @ approx. 11am yesterday, reports N/V, has dry cough, A/Ox4, is homeless,
--- NOTE | 2018-11-16 02:16 | NUR ---
ER at bedside
--- NOTE | 2018-11-16 02:40 | NUR ---
medical chief technician. at bedside for CXR,
[2018-11-16] MEDS ORDERED: IPRATROPIUM BROMIDE 0.5 MG/2.5 ML NEBU NEB ONE (02:45)
[2018-11-16] MEDS ORDERED: ALBUTEROL SULFATE 2.5 MG/3 ML NEBU NEB ONE (02:45)
[2018-11-16 02:47] LABS: BASOPHILS # (AUTO) 0.1 K/uL (0.0-8.0); BASOPHILS % (AUTO) 0.8 % (0.0-2.0); EOSINOPHILS # (AUTO) 0.1 K/uL (0.0-0.7); EOSINOPHILS % (AUTO) 0.8 % (0.0-7.0); HEMATOCRIT 42.6 % (36.7-47.1); HEMOGLOBIN 14.8 g/dL (12.5-16.3); LYMPHOCYTES # (AUTO) 1.3 K/uL (20.0-40.0); LYMPHOCYTES % (AUTO) 17.6 % (20.5-51.5); MEAN CORPUSCULAR HEMOGLOBIN 29.1 uug (23.8-33.4); MEAN CORPUSCULAR HGB CONC 35 g/dL (32.5-36.3); MEAN CORPUSCULAR VOLUME 83.8 fL (73.0-96.2); MONOCYTES # (AUTO) 0.8 K/uL (2.0-10.0); NEUTROPHILS # (AUTO) 5.2 K/uL (1.8-8.9); NEUTROPHILS % (AUTO) 69.8 % (38.5-71.5); PLATELET COUNT (AUTO) 215 K/uL (152-348); RED BLOOD CELL COUNT(AUTO) 5.08 MIL/uL (4.06-5.63); WHITE BLOOD COUNT (AUTO) 7.5 K/uL (3.6-10.2)
[2018-11-16] MEDS ORDERED: IPRATROPIUM BROMIDE 0.5 MG/2.5 ML NEBU ONE (02:49)
[2018-11-16] MEDS ORDERED: ALBUTEROL SULFATE 2.5 MG/ 0.5 ML NEBU ONE (02:52)
--- NOTE | 2018-11-16 02:52 | NUR ---
RT at bedside for breathing treatment,
[2018-11-16 03:03] LABS: ETHANOL < 3 MG/DL (0-0)
[2018-11-16 03:10] LABS: BILIRUBIN,DIRECT 0.5 mg/dL (0.0-0.2); POTASSIUM 3.9 mmol/L (3.5-5.1)
[2018-11-16 03:11] LABS: THYROID STIMULATING HORMONE < 0.007 mIU/mL (0.358-3.740)
[2018-11-16] MEDS ORDERED: ASPIRIN 325 MG TABLET PO ONE (03:30)
[2018-11-16] MEDS ORDERED: FUROSEMIDE 20 MG/2 ML VIAL IV ONE (03:30)
[2018-11-16] MEDS ORDERED: ASPIRIN 325 MG TABLET ONE (03:39)
[2018-11-16] MEDS ORDERED: FUROSEMIDE 40 MG/4 ML VIAL ONE (03:39)
--- NOTE | 2018-11-16 03:41 | NUR ---
Call placed to [facility], Flaquito Huggins speaking with ADA.
[2018-11-16 03:45] LABS: *AMPHETAMINE, URINE POSITIVE (NEGATIVE); *BARBITURATE, URINE NEGATIVE (NEGATIVE); *CANNABINOID, URINE POSITIVE (NEGATIVE); *COCCAINE, URINE NEGATIVE (NEGATIVE); *OPIATE, URINE POSITIVE (NEGATIVE); *PHENCYCLIDINE SCREEN,URINE NEGATIVE (NEGATIVE)
[2018-11-16] MEDS ORDERED: ONDANSETRON IV *ER 4 MG/2 ML VIAL IV ONE (03:45)
[2018-11-16] MEDS ORDERED: ONDANSETRON 4 MG/2 ML VIAL ONE (03:48)
[2018-11-16] MEDS ORDERED: NITROGLYCERIN OINT 1 GM PACKET TP ONE ×2 (03:55→04:00)
--- NOTE | 2018-11-16 04:19 | NUR ---
Pt. taken off unit to transfer to [facility], changed to room 219
--- NOTE | 2018-11-16 04:38 | NUR ---
Admitted from ER with chief complaint of SOB. Awake alert & oriented, verbally responsive but sarcastic. Patient denies nausea & chest pain at this time. BP elevated 146/90 HR 101. Refused tele monitor, patient requesting to place it back after snacks. Light snacks provided per patient request. Kept comfortable. Placed call light within reach.
[2018-11-16 04:47] VITALS: BP 146/90
--- NOTE | 2018-11-16 04:50 | NUR ---
Called [facility] MD-on-call for admission orders.
--- NOTE | 2018-11-16 04:58 | NUR ---
Tele applied, A-flutter on the monitor w/ HR 101 bpm.
[2018-11-16] MEDS ORDERED: ZOLPIDEM 5 MG TABLET PO PRN (05:15)
[2018-11-16] MEDS ORDERED: Z GUARD REMEDY PASTE 57 GM TUBE TOP PRN (05:15)
[2018-11-16] MEDS ORDERED: MAGNESIUM HYDROXIDE 30 ML LIQUID UDC PO PRN (05:15)
[2018-11-16] MEDS ORDERED: HYDROCODONE/APAP 5-325MG TABLET PO PRN (05:15)
[2018-11-16] MEDS ORDERED: ONDANSETRON 4 MG/2 ML VIAL IV PRN (05:15)
[2018-11-16] MEDS ORDERED: ACETAMINOPHEN 325 MG TABLET PO PRN (05:15)
[2018-11-16 05:26] VITALS: BP 146/90
[2018-11-16] MEDS ORDERED: MORPHINE SULFATE 4 MG/1 ML DISP.SYRIN IV PRN (05:30)
[2018-11-16] MEDS ORDERED: NITROGLYCERIN 0.4 MG/TAB BOTTLE SL PRN (05:30)
[2018-11-16] MEDS: FUROSEMIDE 40 MG/4 ML VIAL IV SCH ×2 (06:00→11:54)
--- NOTE | 2018-11-16 06:18 | NUR ---
Lasix 40mg IVP adm. No futher complaints, kept comfortable. Tele A-flutter HR 78 bpm.
[2018-11-16 06:34] LABS: BASOPHILS # (AUTO) 0.1 K/uL (0.0-8.0); BASOPHILS % (AUTO) 0.8 % (0.0-2.0); EOSINOPHILS # (AUTO) 0.1 K/uL (0.0-0.7); EOSINOPHILS % (AUTO) 1.2 % (0.0-7.0); HEMATOCRIT 44.6 % (36.7-47.1); HEMOGLOBIN 15.3 g/dL (12.5-16.3); LYMPHOCYTES # (AUTO) 1.4 K/uL (20.0-40.0); MEAN CORPUSCULAR HEMOGLOBIN 29.1 uug (23.8-33.4); MEAN CORPUSCULAR HGB CONC 34 g/dL (32.5-36.3); MEAN CORPUSCULAR VOLUME 84.8 fL (73.0-96.2); MONOCYTES # (AUTO) 0.9 K/uL (2.0-10.0); MONOCYTES % (AUTO) 11.9 % (0.0-11.0); NEUTROPHILS # (AUTO) 5.2 K/uL (1.8-8.9); NEUTROPHILS % (AUTO) 68.1 % (38.5-71.5); PLATELET COUNT (AUTO) 201 K/uL (152-348); RED BLOOD CELL COUNT(AUTO) 5.26 MIL/uL (4.06-5.63); WHITE BLOOD COUNT (AUTO) 7.7 K/uL (3.6-10.2)
[2018-11-16] MEDS ORDERED: PANTOPRAZOLE SODIUM 40 MG TABLET.DR PO SCH (07:00)
[2018-11-16 07:04] LABS: MAGNESIUM 1.7 mg/dL (1.8-2.4); PHOSPHOROUS 4.2 mg/dL (2.5-4.9); POTASSIUM 3.7 mmol/L (3.5-5.1)
[2018-11-16 07:08] LABS: THYROID STIMULATING HORMONE 0.016 mIU/mL (0.358-3.740)
--- NOTE | 2018-11-16 07:30 | NUR ---
AWAKE ALERT AND VERBALLY RESPONSIVE, NO SS OF PAIN OR DISTRESS FLUTTER ULSR ON MONITOR
[2018-11-16] MEDS ORDERED: CARVEDILOL 6.25 MG TABLET PO SCH (08:00)
--- NOTE | 2018-11-16 08:55 | NUR ---
C/O CHEST DISCOMFORT /10 MORPHINE IV OFFERED BUT PT PREFERS [facility].
[2018-11-16] MEDS ORDERED: LOSARTAN POTASSIUM 25 MG TABLET PO SCH (09:00)
[2018-11-16] MEDS ORDERED: METHIMAZOLE 5 MG TABLET PO SCH (09:00)
[2018-11-16] MEDS ORDERED: ASPIRIN EC 81 MG TABLET.DR PO SCH (09:00)
--- NOTE | 2018-11-16 09:30 | NUR ---
RESTING COMFORTABLY IN BED NO SS OF CHEST PAIN. CLOSELY MONITORED.
[2018-11-16 11:14] VITALS: BP 108/70
[2018-11-16] MEDS ORDERED: MAGNESIUM SULFATE/D5W 100 ML IV SCH (14:00)
--- NOTE | 2018-11-16 14:03 | NUR ---
discharge hme stable to [facility] with discharge meds and follow-up instruction with pcp
[2018-11-16] MEDS ORDERED: RIVAROXABAN 10 MG TABLET PO SCH (18:00)
[2018-11-16] MEDS ORDERED: TAMSULOSIN HCL 0.4 MG CAP.SR.24H PO SCH (21:00)
[2018-11-16] MEDS ORDERED: SIMVASTATIN 40 MG TABLET PO SCH (21:00)
== END 2018-11-16 13:05 | disposition home or self-care (01) | DRG 201 ==
LOC: ER 01:59 → TELE 03:51
DX: I48.92 Unspecified atrial flutter (principal); G92 Toxic encephalopathy; I42.7 Cardiomyopathy due to drug and external agent; I11.0 Hypertensive heart disease with heart failure; I50.32 Chronic diastolic (congestive) heart failure; F20.9 Schizophrenia, unspecified; E44.1 Mild protein-calorie malnutrition; F19.10 Other psychoactive substance abuse, uncomplicated; K76.0 Fatty (change of) liver, not elsewhere classified; E05.90 Thyrotoxicosis, unspecified without thyrotoxic crisis or storm; I48.0 Paroxysmal atrial fibrillation; N40.0 Benign prostatic hyperplasia without lower urinary tract symptoms; F15.188 Other stimulant abuse with other stimulant-induced disorder; F17.210 Nicotine dependence, cigarettes, uncomplicated; I25.10 Atherosclerotic heart disease of native coronary artery without angina pectoris; M19.90 Unspecified osteoarthritis, unspecified site; Z79.899 Other long term (current) drug therapy; Z59.0 Homelessness; Z91.19 Patient's noncompliance with other medical treatment and regimen; Z79.01 Long term (current) use of anticoagulants; I25.2 Old myocardial infarction; Z86.73 Personal history of transient ischemic attack (TIA), and cerebral infarction without residual deficits; Z68.21 Body mass index [BMI] 21.0-21.9, adult; Z86.19 Personal history of other infectious and parasitic diseases; J40 Bronchitis, not specified as acute or chronic; Z87.01 Personal history of pneumonia (recurrent)
CPT/HCPCS: 36415; 70030-TC; 71045; 80307; 83735; 84100; 84443; 85025; 85730; 93005; A4663; G0378; G0480; J1940; J2405; J3590